=== PATIENT | male | born 1965 | race Caucasian/White ===

== ENCOUNTER 2017-05-09 12:00 | Inpatient (IN) ==
[2017-05-09] MEDS ORDERED: DIPH/TET/ACEL PERT BOOSTER VACCINE 0.5 ML VIAL IM ONE ×2 (12:45→12:59)
[2017-05-09] MEDS ORDERED: LACTATED RINGERS 500 ML IV STA (12:45)
[2017-05-09] MEDS ORDERED: HYDROmorphone 2 MG/1 ML VIAL IV STA (12:54)
[2017-05-09] MEDS ORDERED: ONDANSETRON 4 MG/2 ML VIAL IV STA (12:55)
[2017-05-09] MEDS ORDERED: ONDANSETRON 4 MG/2 ML VIAL ONE (12:58)
[2017-05-09] MEDS ORDERED: HYDROmorphone 2 MG/1 ML VIAL ONE ×2 (12:59→14:37)
[2017-05-09] MEDS ORDERED: ceFAZolin 1,000 MG VIAL ONE ×2 (13:15→17:02)
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
[2017-05-09 14:08] LABS: Basophils # 0.1 10*3/uL (0.0-0.2); Basophils % 0.5 % (0.0-0.8); Eosinophils # 0.1 10*3/uL (0.0-0.87); Eosinophils % 0.2 % (0.00-10.9); Hematocrit 43.9 VOL% (42.0-52.0); Hemoglobin 15.6 GM/DL (14.0-18.0); Immature Granulocytes % 0.7 %; Lymphocytes # 1.7 10*3/uL (1.4-4.0); Lymphocytes % 6.4 % (21.2-54.2); Mean Corpuscular HGB Conc 35.5 GM/DL (32-36); Mean Corpuscular Hemoglobin 32 PG (27-34); Mean Corpuscular Volume 90.9 FL (87-102); Mean Platelet Volume 10.2 FL (9.6-12.0); Monocytes # 2.5 10*3/uL (0.11-0.8); Monocytes % 9.3 % (1.7-12.7); Neutrophils # 22.5 10*3/uL (1.4-7.4); Neutrophils % 82.9 % (38.7-73.9); Platelet Count 310 T/CUMM (130-400); Red Blood Count 4.83 MC/CUMM (3.8-5.5); Red Cell Distribution Width 12.5 % (9.3-17.3); White Blood Count 27.1 T/CUMM (4-12)
[2017-05-09 14:18] LABS: INR 1.1; PT Patient Result 11.5 SECS; Partial Thromboplastin Time 24.3 SECS (0-40)
[2017-05-09] MEDS ORDERED: HYDROmorphone 2 MG/1 ML VIAL IV ONE (14:31)
[2017-05-09 14:37] LABS: Alanine Aminotransferase 47 U/L (16-61); Albumin 3.8 G/DL (3.4-5.0); Alkaline Phosphatase 58 U/L (45-117); Amylase 62 U/L (25-115); Aspartate Amino Transferase 33 U/L (0-37); Blood Urea Nitrogen 13 MG/DL (7-18); Calcium 8.9 MG/DL (8.5-10.1); Glucose 141 MG/DL (74-106); Osmolality,Calculated 280.4 MOS/KG (273-304); Potassium 4.2 MMOL/L (3.5-5.1); Sodium 140 MMOL/L (136-145); Total Protein 7.3 G/DL (6.4-8.3)
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
--- NOTE | 2017-05-09 14:43 | Orthopedic History & Physical ---
History of Present Illness Chief complaint: Open ankle fracture right History of present illness: Mr. Lisa is a 51 year old male See dictated report Home Medications Medication Instructions Recorded Confirmed Type No Known Home Medications [No 05/09/17 05/09/17 History Known Home Medications] Allergies Allergy/AdvReac Type Severity Reaction Status Date / Time No Known Allergies Allergy Verified 05/09/17 12:08 Medical,Surgical,& Family Hx - Social History Smoking Status: Current some day smoker Frequency of Alcohol Use: Occasionally Type of Drug Use: None Exam - Constitutional Vitals: Period Temp Pulse Resp BP Sys/Montejo Pulse Ox Last 24 Hr 98.3 F-98.3 F 70-77 18-20 124-184/73-111 95-99 Results - Labs CBC & BMP: 05/09/17 13:58 05/09/17 13:58
[2017-05-09 15:23] LABS: Band Neutrophils 3 % (0-10); Lymphocytes 10 % (20-55); Platelet Estimate Normal; Segmented Neutrophils 84 % (50-85); Total Cells Counted 100
--- NOTE | 2017-05-09 16:16 | EKG Report ---
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
[2017-05-09 16:22] LABS: Apearance,Urine CLEAR (Clear); Bilirubin,Urine Negative (Negative); Blood, Urine Moderate mg/dL (Negative); Glucose,Urine (UA) Negative (Negative); Ketones,Urine 5 mg/dL (Negative); Mucus,Urine Occasional /LPF (Occasional); Nitrite,Urine Negative (Negative); Protein,Urine Negative; RBC,Urine 3 /HPF (0-4); Squamous Epithelial Cell,Urine Occasional /HPF (0-10); Urine Color Yellow (Yellow); Urine Specific Gravity 1.043 (1.001-1.035); Urine Urobilinogen < 2.0 EU/DL (0.2-1.0); WBC,Urine 1 /HPF (0-6)
[2017-05-09] MEDS ORDERED: ROPIVACAINE 0.5% 30 ML VIAL ONE (16:28)
[2017-05-09 16:33] LABS: Barbiturates Screen,Urine Negative (Negative); Benzodiazepines Screen,Urine Negative (Negative); Cannabinoid Screen,Urine Negative (Negative); Opiate Screen,Urine Positive (Negative); Phencyclidine Screen,Urine Negative (Negative)
[2017-05-09] MEDS ORDERED: fentaNYL 100 MCG/2 ML VIAL ONE ×2 (17:37→18:33)
[2017-05-09] MEDS ORDERED: MIDAZOLAM 2 MG/2 ML VIAL ONE (17:37)
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
[2017-05-09] MEDS ORDERED: ONDANSETRON 4 MG/2 ML VIAL IV PRN ×2 (18:18→18:44)
[2017-05-09] MEDS ORDERED: BISACODYL 10 MG SUPP RECTAL PRN (18:18)
[2017-05-09] MEDS ORDERED: MAGNESIUM HYDROXIDE SUSP 30 ML UDCUP PO PRN (18:18)
[2017-05-09] MEDS ORDERED: NALOXONE 0.4 MG/ML VIAL IV PRN (18:18)
[2017-05-09] MEDS ORDERED: LACTULOSE 20 GM/30 ML UDCUP PO PRN (18:18)
[2017-05-09] MEDS ORDERED: HYDROmorphone 2 MG/1 ML VIAL IV PRN ×2 (18:18→18:44)
--- NOTE | 2017-05-09 18:32 | Anesthesia Post-Op ---
Anesthesia Post OP - Post Ansesthetic Evaluation Patient seen in post op: Yes Resp: within normal limits CV: within normal limits Mental: within normal limits Temp: within normal limits Gqyk-St-Wgdpdnnti: within normal limits Nausea and Vomiting: within normal limits Pain: within normal limits
[2017-05-09] MEDS ORDERED: SEVOFLURANE 1 UNIT/15 MINUTE INH ONE (18:35)
[2017-05-09] MEDS ORDERED: SODIUM CHLORIDE 0.9% 1,000 ML IV ONE (18:36)
[2017-05-09] MEDS ORDERED: LACTATED RINGERS 1,000 ML IV SCH (19:00)
[2017-05-09] MEDS: HYDROmorphone PCA 30 MG/30 ML SYRINGE IV SCH (19:14)
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
[2017-05-09] MEDS: LACTATED RINGERS 1,000 ML IV SCH (20:31)
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
[2017-05-10] MEDS: ceFAZolin 2,000 MG in PREMIX 1 EACH IV SCH ×3 (00:18→16:20)
[2017-05-10] MEDS: PROMETHAZINE 25 MG/1 ML VIAL IM PRN ×2 (11:42→17:39)
[2017-05-10] MEDS: HYDROmorphone 2 MG/1 ML VIAL IV PRN ×2 (11:42→16:20)
[2017-05-10] MEDS: LACTATED RINGERS 1,000 ML IV SCH ×2 (11:42)
--- NOTE | 2017-05-10 13:05 | Orthopedic Progress Note ---
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 Tolerating PT well. Discussed findings yesterday. Will plan on discharge tomorrow and follow-up 10 days Exam - Constitutional Vitals: Period Temp Pulse Resp BP Sys/Montejo Pulse Ox Last 24 Hr 96.3 F-98.7 F 64-90 16-22 113-168/52-96 94-100 Results - Labs CBC & BMP: 05/09/17 13:58 05/09/17 13:58
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
[2017-05-10] MEDS: HYDROmorphone PCA 30 MG/30 ML SYRINGE IV SCH (17:39)
[2017-05-11] MEDS: ceFAZolin 2,000 MG in PREMIX 1 EACH IV SCH ×2 (00:51→09:25)
[2017-05-11] MEDS: LACTATED RINGERS 1,000 ML IV SCH ×2 (02:56→23:34)
--- NOTE | 2017-05-11 14:49 | Orthopedic Progress Note ---
Assessment and Plan (1) Open dislocation of right ankle Status: Acute Assessment and plan: Patient does need some additional therapy to be safe ambulating. This is due to his injury morbid obesity. We will plan to have him work with therapy 1 more time in the morning and discharged home afterward. Will work to get home therapy for the patient to discharge. Current Visit: Yes Qualifiers: Encounter type: initial encounter Qualified Code(s): S93.04XA - Dislocation of right ankle joint, initial encounter; S91.001A - Unspecified open wound, right ankle, initial encounter Orthopedics - Subjective Interval history: Patient complains of mild to moderate pain in the right leg. He is able to ambulate approximately 10 feet with therapy today. On exam, splint is clean dry, he can wiggle his toes, he has brisk capillary refill. Exam - Constitutional Vitals: Period Temp Pulse Resp BP Sys/[place] Pulse Ox Last 24 Hr 96.5 F-99.8 F 90-97 18-20 125-161/68-80 95-98 Results - Labs CBC & BMP: 05/09/17 13:58 05/09/17 13:58 Specialty Discharge - Follow Up or Referrals Follow up with: Aaron García Jr., MD [Physician] - 05/21/17 9:00 am
--- NOTE | 2017-05-12 06:58 | Orthopedic Progress Note ---
Assessment and Plan (1) Open dislocation of right ankle Status: Acute Assessment and plan: d/c home today Current Visit: Yes Qualifiers: Encounter type: initial encounter Qualified Code(s): S93.04XA - Dislocation of right ankle joint, initial encounter; S91.001A - Unspecified open wound, right ankle, initial encounter Orthopedics - Subjective Interval history: No new c/o exam unchanged Exam - Constitutional Vitals: Period Temp Pulse Resp BP Sys/[place] Pulse Ox Last 24 Hr 96.5 F-100.0 F 96-110 18-20 129-164/65-88 94-99 Results - Labs CBC & BMP: 05/09/17 13:58 05/09/17 13:58 Specialty Discharge - Follow Up or Referrals Follow up with: Aaron García Jr., MD [Physician] - 05/21/17 9:00 am
[2017-05-12 12:05] VITALS: BP 141/72
[2019-05-09] MEDS ORDERED: LIDOCAINE 100 MG/5 ML SYRINGE ONE (16:30)
[2019-05-09] MEDS ORDERED: PHENYLEPHRINE 1 MG/10 ML SYRINGE IV ONE (16:30)
[2019-05-09] MEDS ORDERED: SUCCINYLCHOLINE 200 MG/10 ML VIAL ONE (16:30)
[2019-05-09] MEDS ORDERED: PROPOFOL 200 MG/20 ML VIAL IV ONE (16:30)
== END 2017-05-12 14:00 | disposition home or self-care (01) | DRG 493 ==
LOC: N.ED 12:00 → N.EDINP 15:47 → N.3E 19:45
PROVIDERS: ADMIT Orthopaedic Surgery; ATTEND Orthopaedic Surgery

== ENCOUNTER 2017-05-21 11:39 | Inpatient (IN) ==
[2017-05-21] MEDS ORDERED: SODIUM CHLORIDE 0.9% 1,000 ML IV STA ×2 (12:28→13:57)
--- NOTE | 2017-05-21 12:44 | Emergency Department Note ---
Mack Covarrubias Hilary, am scribing for, and in the presence of, Carmencita Mariscal DO 12: 30. IDavey Debra, DO, personally performed the services described in this documentation, ascribed by Palma Giron in my presence, and it is both accurate and complete 243 . Arrival - Arrival Chief Complaint: Shortness of Breath Stated Complaint: SOB. NECK AND BACK PAIN. SORE THROAT ED Nursing Triage Note: Pt c/o sore throat since last night, SOB, pale, broke out into a sweat, neck/upper/lower back pain. Pt was sent from [facility] after hours. Pt had ortho surgery on the right leg May [address] García this am for F/U. Mode of Arrival: Wheelchair Limitations: No Limitations Source: Patient, RN Notes Reviewed Time Seen by Provider: 05/21/17 12:10 - History of Present Illness HPI Narrative: Pt is a 51 y/o presenting to the ED with c/o SOB which onset yesterday. Pts brother gives hx and states that last night he was SOB, cold chills, diaphoresis , neck pain, back pain around his kidneys, pale and nausea. He states that the patient had ankle surgery on May 09 and he has been doing really well until yesterday. He states that he has been giving him 2 (325mg) aspirins and 1 [place] (7.5mg) x 3 a day, he drinks a lot of water but his urine is still dark. No other complaints or problems stated in the ED. Onset (ago): hour(s) Consistency: constant Severity: moderate Severity scale (1-10): 2 Allergies/Adverse Reactions: Allergies Allergy/AdvReac Type Severity Reaction Status Date / Time No Known Allergies Allergy Verified 05/09/17 12:08 Home Medications: Home Medications Medication Instructions Recorded Confirmed Type HYDROcodone/ACETAMIN 7.5-325 1 tablet PO Q4H PRN #30 tablet 05/10/17 05/21/17 Rx [[place] 7.5-325] Review of System - Review of System 12 point system: reviewed and no additional remarkable complaints except as stated - Review of System Constitutional: Present: chills, diaphoresis. Absent: fever Head/Ears/Nose/Throat: Present: sore throat Respiratory: Present: respiratory distress (SOB) Gastrointestinal: Present: nausea. Absent: abdominal pain Musculoskeletal: Present: back pain, lower back pain, neck pain, upper back pain Endocrine: Present: fatigue Medical,Surgical,& Family Hx - Medical History Neurology: No history of: Seizures - Surgical History Orthopedic Surgeries: Surgical HX of;: Orthopedic Surgery (right leg) - Social History Smoking Status: Current some day smoker Exam Vital Signs: Vital Signs Temperature 98.0 F 05/21/17 11:46 Pulse Rate 117 H 05/21/17 11:46 Respiratory Rate 24 05/21/17 11:46 Blood Pressure 94/66 05/21/17 11:46 O2 Sat by Pulse Oximetry 95 05/21/17 11:46 - General General appearance: alert, in no apparent distress, obese - Head Head exam: Present: atraumatic, normocephalic - Eye Eye exam: Present: normal appearance, PERRL, EOMI - ENT ENT exam: Present: mucous membranes dry, TM's normal bilaterally - Expanded ENT Exam Throat exam: Present: tonsillar erythema (sweling), other (cervical anterior lymphandenopathy). Absent: tonsillar exudate - Neck Neck exam: Present: full ROM, trachea midline. Absent: tenderness - Chest Chest inspection: Present: symmetric chest wall rise. Absent: tenderness - Respiratory Respiratory exam: Present: normal lung sounds bilaterally. Absent: respiratory distress - Cardiovascular Cardiovascular exam: Present: normal rhythm, tachycardia, normal heart sounds. Absent: murmur, rubs, gallop - Abdominal Exam Abdominal exam: Present: soft, distention (obese), normal bowel sounds. Absent : tenderness - Extremities Exam Extremities exam: Present: full ROM. Absent: tenderness - Back Exam Back exam: Present: full ROM. Absent: tenderness - Neurological Exam Neurological exam: Present: alert, oriented X3, CN II-XII intact. Absent: motor sensory deficit - Psychiatric Psychiatric exam: Present: normal affect, normal mood - Skin Skin exam: Present: warm, dry, intact, pallor. Absent: rash Results - Labs CBC & BMP: 05/21/17 12:58 05/21/17 12:58 Lab Results: I have reviewed the patients labs Labs: Laboratory Tests 05/21/17 12:58 WBC 40.8 H* RBC 4.21 Hgb 13.5 L Hct 38.6 L Plt Count 480 H Neut % (Auto) 91.2 H Lymph % (Auto) 2.4 L Neut # (Auto) 37.2 H Lymph # (Auto) 1.0 L [place] # (Auto) 2.0 H Laboratory Tests 05/21/17 12:58 INR 1.3 PT Patient/Control Mix 14.0 D Circ Anticoag PTT 28.3 Laboratory Tests 05/21/17 05/21/17 12:58 12:58 Sodium 131 L Potassium 4.6 Chloride 96 L Carbon Dioxide 21 Anion Gap 18.6 H BUN 30 H Creatinine 2.50 H Glucose 149 H Calculated Osmolality 270.7 L Total Bilirubin 1.50 H Total Protein 8.3 Albumin 3.2 L Globulin 5.1 H Albumin/Globulin Ratio 0.6 L Salicylates < 2.8 L Microbiology 05/21/17 12:28 Throat Group A Streptococcus Rapid Screen - Final Negative for Grp A Strep Ag - Diagnostic Findings Procedure: Chest x-ray: report reviewed by me (No acute abnormality), CT Abdomen and Pelvis: report reviewed by me (When compared to 05/09/2017, very slight increased prominence of bowel wall in the region of the jejunum suggesting mild gastroenteritis, a clinical diagnosis. Obesity, fatty infiltration of liver and subcentimetere retroperitoneal adn bilateral inguinal lymphnodes are stable. Negative appenddix.)
--- NOTE | 2017-05-21 12:53 | XRay Report ---
Portable chest. Indication: Shortness of breath. Comparison: May 09, 2017. The heart is enlarged. The pulmonary vasculature is normal. The lung webb are clear. No pneumothorax or pleural effusion. Impression: No acute abnormality. PROCEDURE INTERPRETED AT [facility] DEPARTMENT OF RADIOLOGY Final Report Signed by: Dr. Georgia Whitaker
[2017-05-21 13:04] LABS: Basophils # 0.1 10*3/uL (0.0-0.2); Basophils % 0.2 % (0.0-0.8); Hematocrit 38.6 VOL% (42.0-52.0); Hemoglobin 13.5 GM/DL (14.0-18.0); Immature Granulocytes % 1.3 %; Immature Granulocytes Absolute 0.55 #; Lymphocytes % 2.4 % (21.2-54.2); Mean Corpuscular Hemoglobin 32 PG (27-34); Mean Corpuscular Volume 91.7 FL (87-102); Mean Platelet Volume 9.6 FL (9.6-12.0); Monocytes % 4.9 % (1.7-12.7); Neutrophils # 37.2 10*3/uL (1.4-7.4); Neutrophils % 91.2 % (38.7-73.9); Platelet Count 480 T/CUMM (130-400); Red Blood Count 4.21 MC/CUMM (3.8-5.5); Red Cell Distribution Width 13.1 % (9.3-17.3)
[2017-05-21 13:08] LABS: White Blood Count 40.8 T/CUMM (4-12)
[2017-05-21 13:16] LABS: INR 1.3; Partial Thromboplastin Time 28.3 SECS (0-40)
[2017-05-21] MEDS ORDERED: VANCOMYCIN INJ 1,000 MG in SODIUM CHLORIDE 0.9% 250 ML IV STA (13:31)
[2017-05-21] MEDS ORDERED: VANCOMYCIN 1,000 MG VIAL ONE (13:35)
[2017-05-21 13:40] LABS: Albumin 3.2 G/DL (3.4-5.0); Bilirubin,Total 1.5 MG/DL (0.2-1.0); Calcium 8.9 MG/DL (8.5-10.1); Osmolality,Calculated 270.7 MOS/KG (273-304); Potassium 4.6 MMOL/L (3.5-5.1); Total Protein 8.3 G/DL (6.4-8.3)
--- NOTE | 2017-05-21 14:17 | CT Report ---
CT abdomen pelvis wo con Indication: Leukocytosis and flank pain. CT ABDOMEN AND PELVIS WITHOUT CONTRAST DLP: 2011 mGy*cm. One or more of the following dose reduction techniques was used: Automated exposure control, adjustment of the mA and/or kV according the patient size, or use of iterative reconstruction techniques. Comparison: 05/09/2017. Technique: Axial noncontrast CT images of the abdomen and pelvis were obtained. Abdomen: Morbid obesity, fatty infiltration of liver, cholecystectomy clips and normal heart size, mild bibasilar atelectasis, normal spleen, pancreas and adrenal glands are stable. No urolithiasis or obstructive uropathy on either side. Borderline enlarged retroperitoneal lymph nodes are present, largest 9 mm short axis. Similar to the previous exam. No aortic aneurysm. No bowel obstruction or focal bowel abnormality is seen. There is a very faint suggestion of thickening of the jejunum possibly indicating mild gastroenteritis, clinical diagnosis. Pelvis: Normal appendix without inflammation. Urinary bladder, prostate and rectosigmoid colon are unremarkable. Shotty bilateral groin lymph nodes are present, largest 9 mm short axis. These are unchanged as well. No new bone lesions. No free fluid, free air or lymphadenopathy. Impression: When compared to 05/09/2017, very slight increased prominence of bowel wall in the region of the jejunum suggesting mild gastroenteritis, a clinical diagnosis. Obesity, fatty infiltration of liver and subcentimeter retroperitoneal and bilateral inguinal lymph nodes are stable. Negative appendix. PROCEDURE INTERPRETED AT [facility] DEPARTMENT OF RADIOLOGY Final Report Signed by: Chase Delgado M.D.
[2017-05-21] MEDS ORDERED: EPINEPHrine 1 MG/10 ML SYRINGE ONE (14:57)
[2017-05-21] MEDS ORDERED: SODIUM BICARBONATE 50 MEQ/50 ML SYRINGE IV ONE (14:57)
[2017-05-21] MEDS ORDERED: DEXTROSE 50% 25 GM/50 ML SYRINGE IV ONE (14:57)
[2017-05-21] MEDS ORDERED: CALCIUM CHLORIDE 1,000 MG/10 ML SYRINGE IV ONE (14:57)
[2017-05-21] MEDS ORDERED: EPINEPHrine 1 MG/ML VIAL ONE (14:57)
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
[2017-05-21 15:56] LABS: Band Neutrophils 14 % (0-10); Lymphocytes 2 % (20-55); Metamyelocytes 1 %; Platelet Estimate Increased; Segmented Neutrophils 80 % (50-85); Total Cells Counted 100
[2017-05-21] MEDS ORDERED: SODIUM CHLORIDE 0.9% IV ONE (15:57)
[2017-05-21] MEDS ORDERED: AZTREONAM 2,000 MG in SODIUM CHLORIDE 0.9% 100 ML IV SCH (17:00)
[2017-05-21] MEDS: PIPERACILLIN/TAZOBACTAM 3,375 MG in SODIUM CHLORIDE 0.9% 100 ML IV SCH (17:33)
[2017-05-21] MEDS ORDERED: ACETAMINOPHEN 325 MG TABLET PO PRN (18:24)
[2017-05-21] MEDS ORDERED: ONDANSETRON 4 MG/2 ML VIAL IV PRN (18:24)
[2017-05-21] MEDS ORDERED: MORPHINE 2 MG/1 ML SYRINGE IV PRN (18:24)
[2017-05-21 18:28] LABS: ABG Base Excess -3.9 MMOL/L (-2.5-2.5); ABG HCO3 21.1 MMOL/L (20-26); ABG Oxygen Saturation 91.6 % (95-100); ABG PCO2 29.8 MM HG (35-48); ABG PH 7.423 (7.35-7.45); ABG PO2 64.6 MM HG (80-95); ABG TCO2 17.2 MMOL/L (23-27)
[2017-05-21] MEDS ORDERED: MORPHINE 2 MG/1 ML SYRINGE ONE (18:32)
[2017-05-21 19:35] LABS: Apearance,Urine Slightly Hazy (Clear); Bacteria,Urine Moderate /HPF (Few); Bilirubin,Urine Negative (Negative); Blood, Urine Small mg/dL (Negative); Glucose,Urine (UA) Negative (Negative); Hyaline Casts,Urine 7 /LPF (0-3); Ketones,Urine Negative (Negative); Mucus,Urine Occasional /LPF (Occasional); Nitrite,Urine Negative (Negative); Protein,Urine 30 MG/DL; RBC,Urine 2 /HPF (0-4); Urine Color Amber (Yellow); WBC,Urine 8 /HPF (0-6)
[2017-05-21] MEDS: ALBUTEROL/IPRATROPIUM 3 ML NEB RESP TX SCH (20:19)
[2017-05-21 21:04] LABS: Hepatitis A Ab IgM Quant 0.07 Index; Hepatitis A Ab IgM Result Negative (Negative); Hepatitis B Core IgM Quant 0.15 Index; Hepatitis B Core IgM Result Negative (Negative); Hepatitis B Surface Ag Quant < 0.10 Index; Hepatitis B Surface Ag Result Negative (Negative); Hepatitis C Virus Ab Quant 0.15 Index; Hepatitis C Virus Ab Result Negative (Negative)
[2017-05-21] MEDS ORDERED: PHENYLEPHRINE DRIP 40 MG/250 ML PREMIX IV ONE (22:10)
[2017-05-21] MEDS ORDERED: PROPOFOL 1,000 MG/100 ML BOTTLE IV ONE (22:10)
[2017-05-21] MEDS ORDERED: ETOMIDATE 20 MG/10 ML VIAL IV ONE ×2 (22:33→22:37)
[2017-05-21] MEDS ORDERED: SUCCINYLCHOLINE 200 MG/10 ML VIAL ONE ×2 (22:41→22:52)
[2017-05-21] MEDS: PHENYLEPHRINE DRIP 40 MG/250 ML PREMIX IV SCH (23:00)
[2017-05-21 23:35] LABS: ABG Base Excess -13.4 MMOL/L (-2.5-2.5); ABG HCO3 21.7 MMOL/L (20-26); ABG Oxygen Saturation 70.8 % (95-100); ABG PO2 62.7 MM HG (80-95); ABG TCO2 25.6 MMOL/L (23-27); Allen Test Positive
[2017-05-21 23:38] LABS: ABG PCO2 125.5 MM HG (35-48); ABG PH 6.856 (7.35-7.45)
--- NOTE | 2017-05-21 23:54 | Operative Note ---
Date of procedure: 05/21/17 Pre-op diagnosis: Respiratory arrest Post-op diagnosis: same Procedure: Preoperative diagnosis Respiratory arrest Postoperative diagnosis Same Procedure performed Open cricothyroidotomy Findings It is very difficult to tell where the cricothyroid membrane was morbidly obese patient with a short neck. I entered what I thought was the cricothyroid membrane and a 7-1/2 endotracheal tube was placed. It was secured at 15 cm and a chest x-ray was ordered. Complications None apparent Specimen None Indications Respiratory arrest Description of procedure The patient was too unstable for prep or timeout. An 11 blade scalpel was used to make a vertical skin incision over the trachea and the cricothyroid membrane was palpated. This was very difficult to identify by palpation given the patient's morbid obesity and very large thick neck with short neck. The cricothyroid membrane was eventually found at least I think that is what I was feeling and it was entered with an 11 blade scalpel and a trachea presetter operator was used. A 7-1/2 endotracheal tube was then placed at 15 cm and the cuff was inflated. The tube was then used for ventilation and had good breath sounds. A chest x-ray was ordered and it was secured with the suture. Postoperative plan Exchange for trans-oral airway tomorrow Implants: 7.5 endotracheal tube through cricothyroid membrane Surgeon / Physician: Phillip Bui Specimens: none sent Condition: critical Disposition: no change Results - Labs CBC & BMP: 05/21/17 12:58 05/21/17 12:58 Discharge Plan - Discharge Medications No Action HYDROcodone/ACETAMIN 7.5-325 [[place] 7.5-325] 1 tablet PO Q4H PRN #30 tablet PRN Reason: Pain Moderate (4-7) - Follow Up or Referral - Forms/Instructions
[2017-05-22] MEDS ORDERED: HEPARIN/NACL 0.9% 2 UNITS/ML 500 ML IV ONE (00:47)
[2017-05-22] MEDS: PROPOFOL 1,000 MG/100 ML BOTTLE IV SCH (01:00)
[2017-05-22] MEDS ORDERED: CISATRACURIUM 10 MG/5 ML VIAL IV ONE (01:03)
[2017-05-22 01:07] LABS: ABG Base Excess -12.3 MMOL/L (-2.5-2.5); ABG Oxygen Saturation 96.8 % (95-100); ABG PCO2 63.1 MM HG (35-48); ABG TCO2 17.8 MMOL/L (23-27)
[2017-05-22 01:09] LABS: ABG PH 7.086 (7.35-7.45)
[2017-05-22] MEDS: ALBUTEROL/IPRATROPIUM 3 ML NEB RESP TX SCH ×7 (01:10→23:48)
[2017-05-22 01:28] LABS: Basophils # 0.1 10*3/uL (0.0-0.2); Basophils % 0.2 % (0.0-0.8); Eosinophils # 0.1 10*3/uL (0.0-0.87); Eosinophils % 0.1 % (0.00-10.9); Hematocrit 33.7 VOL% (42.0-52.0); Hemoglobin 10.7 GM/DL (14.0-18.0); Immature Granulocytes % 3.5 %; Immature Granulocytes Absolute 1.32 #; Lymphocytes # 3.7 10*3/uL (1.4-4.0); Lymphocytes % 9.8 % (21.2-54.2); Mean Corpuscular HGB Conc 31.8 GM/DL (32-36); Mean Corpuscular Hemoglobin 32 PG (27-34); Mean Corpuscular Volume 101.2 FL (87-102); Mean Platelet Volume 10.5 FL (9.6-12.0); Monocytes # 1.6 10*3/uL (0.11-0.8); Monocytes % 4.4 % (1.7-12.7); NRBC # 0.25 10*3/uL; Neutrophils # 30.6 10*3/uL (1.4-7.4); Platelet Count 412 T/CUMM (130-400); Red Blood Count 3.33 MC/CUMM (3.8-5.5); Red Cell Distribution Width 13.3 % (9.3-17.3); White Blood Count 37.4 T/CUMM (4-12)
--- NOTE | 2017-05-22 01:28 | Event Note ---
Intubation note: Indication: Respiratory distress Description: The patient required sedation with propofol, etomidate, and succinylcholine. The video-laryngoscope was used to visualize the vocal cords. The vocal cords were poorly visualized due to copious secretions. Upon first attempt, the esophagus was intubated. Second and third attempt at intubation were unsuccessful. Anesthesia and ER physician were called immediately. Anesthesia was unable to intubate the patient, thus an emergent cricothyroidotomy was performed at the bedside successfully. Unfortunately just prior to this the patient lost his pulse. CODE BLUE note Approximately 2300 while attempting to obtain airway patient lost his pulse and required ACLS for approximately 18 minutes before ROSC. He was then cardioverted into sinus rhythm from V. tach. Targeted temperature management protocol was then initiated. Approximately 2:52 AM patient lost his pulse and required ACLS until ROSC at approximately 2:57 AM Approximately 3:48 AM patient lost his pulse and required ACLS until ROSC at approximately 3:56 AM Patient's brother was kept updated throughout these events, including patient's severity of illness. PROCEDURE NOTE: Right femoral central line placement. Indication: CV access The right groin was prepped and draped per sterile technique and anesthetized with lidocaine. The femoral artery pulse was palpated, and the finder needle was advanced into the femoral vein with dark nonpulsatile blood return. The guidewire was advanced through the finder needle into the femoral vein. A small skin incision was made, the needle was removed, and the dilator was applied over the wire. The dilator was removed and the arrow triple-lumen catheter was advanced easily over the wire. Each port aspirated and flushed with normal saline. The central line was sutured into place. Complications: none EBL: minimal PROCEDURE NOTE: Right femoral arterial line placement Indication: Intra-arterial BP monitoring s/p cardiac arrest The right groin was prepped and draped per sterile technique and anesthetized with lidocaine. The right femoral artery was palpated easily and the finder needle was advanced into the artery with bright red pulsatile blood return. The guidewire was advanced through the finder needle into the femoral artery. A small skin incision was made, the needle was removed, and the arterial catheter was advanced over the wire into place, the wire was removed, and the line was sutured into place. A-line was connected to a transducer with good waveform. EBL: minimal Complications: none Total critical care time spent with this patient, including [id number] time with patient's brother, CODE BLUE 3, and procedures was approximately 142 minutes
[2017-05-22] MEDS ORDERED: FAMOTIDINE 20 MG/2 ML VIAL IV SCH (01:30)
[2017-05-22] MEDS ORDERED: MAGNESIUM SULF RIDER 4 GM in PREMIX 1 EACH IV PRN (01:30)
[2017-05-22] MEDS ORDERED: MAGNESIUM SULF RIDER 2 GM in PREMIX 1 EACH IV PRN (01:30)
[2017-05-22] MEDS ORDERED: POTASSIUM CHLORIDE RIDER 20 MEQ in PREMIX 1 EACH IV PRN (01:30)
[2017-05-22] MEDS ORDERED: POTASSIUM CHLORIDE RIDER 10 MEQ in PREMIX 1 EACH IV PRN (01:30)
[2017-05-22 01:34] LABS: INR 1.6; PT Patient Result 17.9 SECS; Partial Thromboplastin Time 32.9 SECS (0-40)
[2017-05-22 01:49] LABS: Alanine Aminotransferase 30 U/L (16-61); Alkaline Phosphatase 67 U/L (45-117); Aspartate Amino Transferase 32 U/L (0-37); Calcium 7.7 MG/DL (8.5-10.1); Phosphorous 10.3 MG/DL (2.5-4.9); Total Protein 5.2 G/DL (6.4-8.3)
[2017-05-22 01:50] LABS: Amylase 29 U/L (25-115); Blood Urea Nitrogen 31 MG/DL (7-18); Glucose 267 MG/DL (74-106); Magnesium 2.3 MG/DL (1.8-2.4); Osmolality,Calculated 296.3 MOS/KG (273-304); Sodium 141 MMOL/L (136-145)
[2017-05-22 02:04] LABS: Band Neutrophils 15 % (0-10); Lymphocytes 9 % (20-55); Segmented Neutrophils 72 % (50-85); Total Cells Counted 100
[2017-05-22 02:05] LABS: Platelet Estimate Adequate
[2017-05-22 02:06] LABS: Burr Cells Slight; Polychromasia Slight
[2017-05-22] MEDS: CISATRACURIUM 200 MG in SODIUM CHLORIDE 0.9% 100 ML IV SCH ×6 (02:20→22:53)
[2017-05-22] MEDS: fentaNYL INJ 1,250 MCG in SODIUM CHLORIDE 0.9% 225 ML IV SCH ×4 (02:21→22:55)
[2017-05-22] MEDS: PIPERACILLIN/TAZOBACTAM 3,375 MG in SODIUM CHLORIDE 0.9% 100 ML IV SCH ×3 (02:32→16:25)
[2017-05-22] MEDS ORDERED: SODIUM BICARBONATE 50 MEQ/50 ML SYRINGE IV ONE (02:50)
[2017-05-22] MEDS: SODIUM BICARB INJ 150 MEQ in DEXTROSE 5% 850 ML IV SCH ×2 (03:35→14:52)
[2017-05-22] MEDS ORDERED: SODIUM CHLORIDE 0.9% 1,000 ML IV ONE (03:40)
[2017-05-22] MEDS ORDERED: NOREPINEPHRINE 4 MG/4 ML VIAL IV ONE ×2 (03:47→07:28)
[2017-05-22] MEDS ORDERED: PHENYLEPHRINE DRIP 40 MG/250 ML PREMIX IV ONE (04:57)
[2017-05-22] MEDS: NOREPINEPHRINE 8 MG in SODIUM CHLORIDE 0.9% 242 ML IV SCH ×2 (05:13→08:30)
[2017-05-22] MEDS: PHENYLEPHRINE DRIP 40 MG/250 ML PREMIX IV SCH ×2 (05:14→09:00)
[2017-05-22 06:21] LABS: ABG Base Excess -13.4 MMOL/L (-2.5-2.5); ABG HCO3 14.2 MMOL/L (20-26); ABG Oxygen Saturation 96.4 % (95-100); ABG TCO2 18.6 MMOL/L (23-27)
[2017-05-22 06:23] LABS: ABG PH 7.029 (7.35-7.45)
[2017-05-22 06:24] LABS: ABG PCO2 73.6 MM HG (35-48)
[2017-05-22 06:39] LABS: Basophils # 0.1 10*3/uL (0.0-0.2); Basophils % 0.3 % (0.0-0.8); Eosinophils # 0.1 10*3/uL (0.0-0.87); Eosinophils % 0.2 % (0.00-10.9); Hematocrit 37.6 VOL% (42.0-52.0); Hemoglobin 12.1 GM/DL (14.0-18.0); Immature Granulocytes Absolute 1.65 #; Lymphocytes # 4.6 10*3/uL (1.4-4.0); Lymphocytes % 11.1 % (21.2-54.2); Mean Corpuscular HGB Conc 32.2 GM/DL (32-36); Mean Corpuscular Hemoglobin 32 PG (27-34); Mean Corpuscular Volume 99.7 FL (87-102); Mean Platelet Volume 10.3 FL (9.6-12.0); Monocytes # 1.6 10*3/uL (0.11-0.8); Monocytes % 3.9 % (1.7-12.7); NRBC # 0.71 10*3/uL; Neutrophils # 33.6 10*3/uL (1.4-7.4); Neutrophils % 80.5 % (38.7-73.9); Platelet Count 507 T/CUMM (130-400); Red Blood Count 3.77 MC/CUMM (3.8-5.5); Red Cell Distribution Width 13.5 % (9.3-17.3)
[2017-05-22 06:50] LABS: INR 1.9
[2017-05-22 06:52] LABS: PT Patient Result 20.8 SECS
--- NOTE | 2017-05-22 06:55 | Pulmonology Consult Note ---
Assessment and Plan (1) Sepsis Status: Acute Assessment and plan: Patient had fever marked elevated white count tachycardia. Presently on vancomycin and Zosyn. Infectious disease to see. Apparently he has had purulent drainage from his right leg. Current Visit: Yes (2) Acute respiratory failure Status: Acute Assessment and plan: His chest x-ray looks pretty good. Remains hypoxemic despite FiO2 of 100%. Marked metabolic acidosis. Presently has orotracheal tube via his cricoid. Will get ENT to see if we can get a more permanent airway. Current Visit: Yes (3) Septic shock Status: Acute Assessment and plan: Continuing broad-spectrum antibiotics, pressors, bicarb. He is getting a good bit of IV fluid. Renal function had worsened. Current Visit: Yes (4) Morbid obesity Status: Acute Assessment and plan: This may complicate things with weaning. Current Visit: No (5) Open fracture of medial malleolus of right ankle Status: Acute Assessment and plan: Orthopedics to follow. Current Visit: No History of Present Illness Chief complaint: Post cardiac arrest History of present illness: Mr. Lisa is a 51 year old male who had an ankle fracture about a week and a half ago. He apparently had fever shortness of breath going on for a day or 2. He was seen at the orthopedic office and sent to the emergency room. He subsequently developed respiratory distress. Reportedly had a difficult intubation requiring emergent tracheostomy. Had cardiac arrest during the procedure. At present he is unresponsive on the ventilator and has a severe metabolic acidosis. I was asked to see him to manage the ventilator. Reportedly he has had purulent drainage from his ankle. Home Medications Medication Instructions Recorded Confirmed Type HYDROcodone/ACETAMIN 7.5-325 1 tablet PO Q4H PRN #30 tablet 05/10/17 05/21/17 Rx [[place] 7.5-325] Allergies Allergy/AdvReac Type Severity Reaction Status Date / Time No Known Allergies Allergy Verified 05/09/17 12:08 ROS unobtainable: due to endotracheal tube Exam (Pulmonay) H&P - Constitutional Vitals: Period Temp Pulse Resp BP Sys/[place] Pulse Ox Last 24 Hr 96.9 F-103.5 F 72-140 14-42 33-196/19-129 75-98 Exam: Patient is unresponsive. Tachycardic his blood pressures being maintained with pressors. Pupils are small and sluggish. He has an endotracheal tube via his upper trachea. Appears to be an area of cricoid. Chest shows equal breath sounds. I do not hear any rales. Heart rapid rate regular rhythm no murmurs. Abdomen obese unable to palpate abdominal organs. Bowel sounds decreased but present. Extremities no clubbing cyanosis edema. He has a splint on his right lower leg. Medical,Surgical,& Family Hx - Medical History Neurology: No history of: Seizures - Surgical History Orthopedic Surgeries: Surgical HX of;: Orthopedic Surgery (right leg) - Social History Smoking Status: Current some day smoker Frequency of Alcohol Use: Occasionally Type of Drug Use: None Results - Labs CBC & BMP: 05/22/17 00:12 05/22/17 00:12 Lab Results: I have reviewed the past 24 hour labs - Diagnostic Findings Procedure: Chest x-ray: image reviewed by me (There may be minimal infiltrate on the left side. Lungs relatively clear. This was from the 11:54 PM x-ray last night. Today's x-ray is pending.)
[2017-05-22 07:25] LABS: Lactic Acid 9.1 MMOL/L (0.4-2.0)
--- NOTE | 2017-05-22 07:27 | XRay Report ---
Exam: XR chest 1V portable Indication: Intubated, ventilator Comparison study: 05/21/2017 radiograph Findings: Tracheostomy tube and esophagogastric tube are in similar positions. Low lung volumes are noted. There is no pneumothorax. Cardiac silhouette and mediastinal contours appear similar to prior. Impression: No significant change. Stable position of endotracheal and esophagogastric tubes. PROCEDURE INTERPRETED AT [facility] DEPARTMENT OF RADIOLOGY Final Report Signed by: Amado Mota
[2017-05-22 07:28] LABS: White Blood Count 41.7 T/CUMM (4-12)
--- NOTE | 2017-05-22 07:32 | XRay Report ---
Exam: XR chest 1V portable Indication: Intubated, ventilator Comparison study: 05/22/2017 at 2:47 AM Findings: Endotracheal tube terminates approximately 3 cm from the rafa, unchanged. Esophagogastric tube is in similar position. Cardiac silhouette and mediastinal contours appear essentially unchanged. Low lung volumes are noted. Minimal perihilar interstitial opacities are noted. There is no pneumothorax Impression: Stable position of endotracheal and esophagogastric tubes. Similar mild cardiomegaly. Otherwise, no significant change. PROCEDURE INTERPRETED AT [facility] DEPARTMENT OF RADIOLOGY Final Report Signed by: Amado Mota
[2017-05-22 07:35] LABS: Albumin 2.1 G/DL (3.4-5.0); Bilirubin,Total 1.6 MG/DL (0.2-1.0); CKMB % 1.7 %; Calcium 7.5 MG/DL (8.5-10.1); Potassium 4.4 MMOL/L (3.5-5.1)
[2017-05-22 07:38] LABS: Troponin I Only 7.86 NG/ML (0.00-0.045)
--- NOTE | 2017-05-22 07:58 | XRay Report ---
Exam: XR chest 1V portable Date: 05/21/2017 11:50 PM Indication: Cricothyroidotomy Comparison: 05/21/2017 Technical:AP portable Findings: Nasogastric tube traverses the esophagus and the distal tip endotracheal tube is present at the level of the aortic knob. External cardiac leads are present. No pneumothorax. Mild prominence the cardiac silhouette. Patchy interstitial infiltrates in the perihilar regions. Impression: 1. Endotracheal tube at level aortic knob 2. Nasogastric tube at the GE junction. Advancement the tube is recommended. Critical test report called at time of dictation to this ICU nurse. PROCEDURE INTERPRETED AT [facility] DEPARTMENT OF RADIOLOGY Final Report Signed by: Dr. Arnulfo Arnold
[2017-05-22] MEDS: LORazepam 2 MG/1 ML VIAL IV PRN ×2 (08:00→21:54)
--- NOTE | 2017-05-22 08:01 | EKG Report ---
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
[2017-05-22 08:04] LABS: Band Neutrophils 31 % (0-10); Hypochromasia 1+; Lymphocytes 10 % (20-55); Polychromasia Slight; Promyelocytes 1 %; Segmented Neutrophils 56 % (50-85); Total Cells Counted 100
[2017-05-22 08:05] LABS: Platelet Estimate Increased; Target Cells Slight
[2017-05-22 08:19] LABS: ABG Base Excess -12.8 MMOL/L (-2.5-2.5); ABG HCO3 14.5 MMOL/L (20-26); ABG Oxygen Saturation 92.2 % (95-100); ABG PO2 86.4 MM HG (80-95); ABG TCO2 18.9 MMOL/L (23-27)
[2017-05-22 08:22] LABS: ABG PCO2 72.9 MM HG (35-48); ABG PH 7.042 (7.35-7.45)
[2017-05-22] MEDS: LORazepam INJ 40 MG in DEXTROSE 5% 30 ML IV SCH ×4 (08:25→22:55)
[2017-05-22 08:42] LABS: Apearance,Urine CLOUDY (Clear); Bacteria,Urine Occasional /HPF (Few); Bilirubin,Urine Negative (Negative); Blood, Urine Moderate mg/dL (Negative); Glucose,Urine (UA) 150 mg/dL (Negative); Ketones,Urine Negative (Negative); Mucus,Urine Occasional /LPF (Occasional); Nitrite,Urine Negative (Negative); Protein,Urine >=500 MG/DL; RBC,Urine 113 /HPF (0-4); Sperm,Urine Occasional /HPF (Negative); Urine Specific Gravity 1.013 (1.001-1.035); Urine Urobilinogen < 2.0 EU/DL (0.2-1.0); WBC,Urine 97 /HPF (0-6)
[2017-05-22 08:44] LABS: Urine Color Yellow (Yellow)
--- NOTE | 2017-05-22 09:42 | Orthopedic Progress Note ---
Orthopedics - Subjective Interval history: Events of yesterday and last noted upon admission including respiratory arrest now intubated. He was seen in clinic yesterday for a follow-up from his ORIF medial tibial plafond fracture he did not feel well at the time was pale and diaphoretic his splint was changed all wounds were inspected his surgical incision was clean and dry elysia were removed and wound Steri-Stripped the wound over the medial heel which was draining some mild serous fluid but no purulent material he also had developed a abrasion/fracture blistered area over the posterior medial calf that was superficial and not also felt to be infected. Exam today confirms the wound findings from yesterday still some mild serous drainage from the heel wound I cannot palpate or express any discharge from that wound. The fracture blistered area again is superficial and fairly dry his surgical wound also remains dry with no erythema fluctuance or expression of any seropurulent material. We will continue with the redressing of his lower leg and the splinting. I do not believe his ankle wound is infected nor source for his sepsis from clinical evaluation. Situation is quite critical at this time. Continue to follow with you. No family is present to discuss this a.m. Exam - Constitutional Vitals: Period Temp Pulse Resp BP Sys/[place] Pulse Ox Last 24 Hr 96.9 F-103.5 F 72-140 14-42 33-196/19-129 75-98 Results - Labs CBC & BMP: 05/22/17 06:01 05/22/17 06:02
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
--- NOTE | 2017-05-22 10:45 | Hospitalist Progress Note ---
Assessment and Plan (1) Anoxic encephalopathy syndrome Status: Acute Assessment and plan: The patient has elevated cardiac enzymes and liver function testing and creatinine elevation consistent with anoxia. The patient continues on cooling protocol. Antibiotics are as designed by Dr. Sanford. Fracture care per Dr. García. Ventilator management per Dr. Smith. Current Visit: Yes (2) Acute respiratory failure Status: Acute Current Visit: Yes Qualifiers: Respiratory failure complication: hypoxia and hypercapnia Qualified Code(s) : J96.01 - Acute respiratory failure with hypoxia; J96.02 - Acute respiratory failure with hypercapnia (3) Septic shock Status: Acute Current Visit: Yes Hospitalist: Subjective Interval history: The patient was admitted the hospital with sepsis syndrome. The patient had respiratory failure and resulting respiratory arrest. The patient has evidence of anoxic injury. The patient is unresponsive and receiving hypothermic care at present. I coordinated care with Dr. García and with Dr. Sanford this morning. Exam - Constitutional Vitals: Period Temp Pulse Resp BP Sys/[place] Pulse Ox Last 24 Hr 96.9 F-103.5 F 72-140 14-42 33-196/19-129 75-99 - Respiratory Respiratory exam: Present: clear to auscultation bilaterally - Cardiovascular Cardiovascular exam: Present: regular rate and rhythm - GI/Abdominal GI/Abdominal exam: Present: hypoactive bowel sounds Results - Labs CBC & BMP: 05/22/17 06:01 05/22/17 06:02 Lab Results: I have reviewed the past 24 hour labs
[2017-05-22] MEDS: NOREPINEPHRINE 16 MG in SODIUM CHLORIDE 0.9% 234 ML IV SCH ×2 (10:58→18:04)
[2017-05-22] MEDS: PHENYLEPHRINE INJ 160 MG in SODIUM CHLORIDE 0.9% 234 ML IV SCH ×2 (11:02→22:54)
[2017-05-22 11:21] LABS: HIV Antigen/Antibody Result Nonreactive (Nonreactive)
[2017-05-22] MEDS ORDERED: MINERAL OIL/PETROLATUM OPH OINT 3.5 GM TUBE BOTH EYES PRN (11:24)
[2017-05-22 12:17] LABS: Basophils # 0.1 10*3/uL (0.0-0.2); Basophils % 0.3 % (0.0-0.8); Eosinophils % 0.1 % (0.00-10.9); Hemoglobin 12.5 GM/DL (14.0-18.0); Immature Granulocytes % 2.2 %; Immature Granulocytes Absolute 0.74 #; Lymphocytes # 3.7 10*3/uL (1.4-4.0); Lymphocytes % 11.1 % (21.2-54.2); Mean Corpuscular HGB Conc 32.1 GM/DL (32-36); Mean Corpuscular Hemoglobin 32 PG (27-34); Mean Corpuscular Volume 99.2 FL (87-102); Monocytes # 1.1 10*3/uL (0.11-0.8); Monocytes % 3.3 % (1.7-12.7); NRBC # 0.74 10*3/uL; Neutrophils # 27.7 10*3/uL (1.4-7.4); Platelet Count 438 T/CUMM (130-400); Red Blood Count 3.93 MC/CUMM (3.8-5.5); Red Cell Distribution Width 13.4 % (9.3-17.3); White Blood Count 33.3 T/CUMM (4-12)
[2017-05-22 12:27] LABS: INR 2.3; Partial Thromboplastin Time 35.9 SECS (0-40)
[2017-05-22 12:28] LABS: PT Patient Result 25.5 SECS
[2017-05-22 12:34] LABS: Calcium 6.7 MG/DL (8.5-10.1); Magnesium 2.4 MG/DL (1.8-2.4); Osmolality,Calculated 296.1 MOS/KG (273-304); Potassium 4.5 MMOL/L (3.5-5.1)
[2017-05-22 12:34] LABS: Band Neutrophils 10 % (0-10); Giant Platelets Few; Lymphocytes 7 % (20-55); Platelet Estimate Adequate; Segmented Neutrophils 80 % (50-85); Total Cells Counted 100
[2017-05-22 12:35] LABS: Anisocytosis 1+; Macrocytosis 1+
[2017-05-22 12:38] LABS: Lactic Acid 8.5 MMOL/L (0.4-2.0)
[2017-05-22 13:02] LABS: Troponin I Only 9.44 NG/ML (0.00-0.045)
[2017-05-22] MEDS: INSULIN REGULAR 100 UNIT/ML IV SCH ×3 (13:06→20:18)
--- NOTE | 2017-05-22 13:52 | Consultation ---
Assessment and Plan - Time spent with patient Time spent with patient: Less than 30 minutes (1) Ventilator dependent Status: Acute Assessment and plan: Emergent cricothyroidotomy performed last night. He is currently ventilating well with the cricothyroidotomy with a ET tube #[address] and patent. I agree he needs to have this converted to a tracheostomy in the near future. I would normally recommend this within 24 hours but because of his overall status currently and the concern for anoxic brain injury and requiring of 3 pressors I feel this takes precedence over concern for his long-term laryngeal health by keeping a cricothyroidotomy that he is tolerating well in place. Will continue to watch him I will plan on changing him to a more formal tracheostomy on Sunday after he is hopefully improved and his cooling is complete and hopefully he is off some or all of his pressors. I discussed this with pulmonology and general surgery and the feel that this is a reasonable plan considering the patient's overall medical condition. Thank you very much for this consultation I will intermittently follow this patient and plan on proceeding with tracheostomy on Sunday unless his condition worsens or changes. Current Visit: Yes (2) Tracheostomy status Status: Acute Current Visit: Yes (3) Acute respiratory failure Status: Acute Current Visit: Yes Qualifiers: Respiratory failure complication: hypoxia and hypercapnia Qualified Code(s) : J96.01 - Acute respiratory failure with hypoxia; J96.02 - Acute respiratory failure with hypercapnia (4) Anoxic encephalopathy syndrome Status: Acute Current Visit: Yes History of Present Illness - Data of Consult Patient: new to practice Consult date: 05/22/17 - Consult Narrative Reason for consult: Cricothyroidotomy emergent History of present illness: Mr. Lisa is a 51 year old male with multiple medical comorbidities who ultimately coded and was unable to be mask ventilated and required intubation which failed and general surgery was emergently consulted to perform a emergent cricothyroidotomy that a ET tube was placed in. ENT is consulted for conversion to tracheostomy. His condition is very guarded currently and he is requiring cooling to help with possible anoxic brain injury and is on 3 pressors and currently they are trying to get 72 hours consecutive of cooling for concern for possible anoxic brain injury. Is currently on the ventilator tolerating this well. CC: Yuri Hale MD - Home Medications and Allergies Home Medications: Home Medications Medication Instructions Recorded Confirmed Type HYDROcodone/ACETAMIN 7.5-325 1 tablet PO Q4H PRN #30 tablet 05/10/17 05/21/17 Rx [[place] 7.5-325] Allergies/Adverse Reactions: Allergies Allergy/AdvReac Type Severity Reaction Status Date / Time No Known Allergies Allergy Verified 05/09/17 12:08 ROS unobtainable: due to endotracheal tube Medical,Surgical,& Family Hx - Medical History Neurology: No history of: Seizures - Surgical History Orthopedic Surgeries: Surgical HX of;: Orthopedic Surgery (right leg) - Social History Smoking Status: Current some day smoker Frequency of Alcohol Use: Occasionally Type of Drug Use: None Exam - Constitutional Vitals: Period Temp Pulse Resp BP Sys/[place] Pulse Ox Last 24 Hr 91.0 F-103.5 F 72-140 14-42 33-196/19-129 75-99 General appearance: over weight, other (On the ventilator sedated) - Head Head exam: Present: normal inspection, normocephalic - ENT ENT exam: Present: normal exam (Grossly normal exam), normal external ear exam, normal oropharynx - Neck Neck exam: Present: other (The midline cricothyroidotomy with a #[address] and patent and the patient is ventilating well.) - Respiratory Respiratory exam: Present: other (Currently on the ventilator and sedated) - Cardiovascular Cardiovascular exam: Present: other (Currently on 3 pressors to maintain blood pressure is just barely over 100 systolic) - GI/Abdominal GI/Abdominal exam: Present: soft - Neurological Exam Neurological exam: Present: other (Sedated concern for anoxic brain injury currently being cooled) - Psychiatric Psychiatric exam: Present: other (Unable to assess because the patient is sedated on the ventilator) - Skin Skin exam: Present: other (Patient's skin overall is cool because of the cooling being performed for concern of anoxic brain injury) Results - Labs CBC & BMP: 05/22/17 12:14 05/22/17 11:45 Lab Results: I have reviewed the past 24 hour labs Quality Measures - VTE Contraindication to Pharmacological VTE Prophylaxis: High Risk of Bleeding
--- NOTE | 2017-05-22 15:02 | Neurology Consult Note ---
History of Present Illness History of present illness: Pt is unable to provide any history. History basically obtained from the chart. Mr. Lisa is a 51 year old white gentleman who had an ankle fracture about a week and a half ago. He apparently presented to ER with fever and shortness of breath for a day or 2. He was seen at the orthopedic office and sent to the emergency room. He subsequently developed respiratory distress. Reportedly had a difficult intubation requiring emergent tracheostomy. Had cardiac arrest during the procedure. At present he is unresponsive on the ventilator and has a severe metabolic acidosis. he is also getting Artic sun hypothermia protocol. he is completely unresponsive and requiring multiple presser agents. Home Medications Medication Instructions Recorded Confirmed Type HYDROcodone/ACETAMIN 7.5-325 1 tablet PO Q4H PRN #30 tablet 05/10/17 05/21/17 Rx [[place] 7.5-325] Allergies Allergy/AdvReac Type Severity Reaction Status Date / Time No Known Allergies Allergy Verified 05/09/17 12:08 ROS unobtainable: due to endotracheal tube Medical,Surgical,& Family Hx - Medical History Neurology: No history of: Seizures - Surgical History Orthopedic Surgeries: Surgical HX of;: Orthopedic Surgery (right leg) - Social History Smoking Status: Current some day smoker Frequency of Alcohol Use: Occasionally Type of Drug Use: None Exam - Constitutional Vitals: Period Temp Pulse Resp BP Sys/[place] Pulse Ox Last 24 Hr 90.3 F-103.5 F 72-140 14-42 33-196/19-129 75-99 Exam: GENERAL: Patient is in no acute distress. NECK: Neck is supple. There is no JVD. No carotid bruits present. No thyroid masses. Trach placed CVS: First and second heart sounds are normal. There is no S3 present. Regular rate and rhythm. RESPIRATORY: Lungs are clear to auscultation without any rales or rhonchi. ABDOMEN: Soft and non-tender. Bowel sounds are present. There is no hepatosplenomegaly. EXT: There is no palpable edema. Peripheral pulses are present. Skin: No rashes Central Nervous system: General: Unresponsive on vent Speech: None Comprehension: None Facial expressions: Normal Cranial Nerves: Pupils are very sluggish. Doll's head eye movements are negative. No facial asymmetry seen Motor: Bulk and Tone is normal. Strength cannot be assessed Sensory: Cannot be assessed Reflexes: Absent and symmetrical Cerebellar function: Cannot be assessed Toes: Equivocal Gait: Cannot be assessed Results - Labs CBC & BMP: 05/22/17 12:14 05/22/17 11:45 Assessment and Plan (1) Hypoxic encephalopathy Status: Acute Assessment and plan: Continue current supportive treatment Continue [facility] protocol Once rewarmed, will perform further work-up Thank you for the consult Current Visit: Yes (2) Cardiopulmonary arrest Status: Acute Current Visit: Yes
[2017-05-22] MEDS: MINERAL OIL/PETROLATUM OPH OINT 3.5 GM TUBE BOTH EYES SCH ×2 (16:03→20:17)
[2017-05-22] MEDS ORDERED: ASPIRIN 300 MG SUPP RECTAL SCH (16:30)
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
[2017-05-22] MEDS: MEROPENEM 1,000 MG in SODIUM CHLORIDE 0.9% 100 ML IV SCH (17:30)
[2017-05-22 17:56] LABS: Basophils # 0.1 10*3/uL (0.0-0.2); Basophils % 0.3 % (0.0-0.8); Hematocrit 38.6 VOL% (42.0-52.0); Hemoglobin 12.4 GM/DL (14.0-18.0); Immature Granulocytes % 3.6 %; Immature Granulocytes Absolute 1.19 #; Lymphocytes # 2.7 10*3/uL (1.4-4.0); Lymphocytes % 8.3 % (21.2-54.2); Mean Corpuscular HGB Conc 32.1 GM/DL (32-36); Mean Corpuscular Hemoglobin 32 PG (27-34); Mean Platelet Volume 10.3 FL (9.6-12.0); Monocytes # 1.3 10*3/uL (0.11-0.8); Monocytes % 3.8 % (1.7-12.7); NRBC # 0.83 10*3/uL; Neutrophils # 27.7 10*3/uL (1.4-7.4); Platelet Count 388 T/CUMM (130-400); Red Cell Distribution Width 13.3 % (9.3-17.3)
[2017-05-22 18:07] LABS: INR 2.5; Partial Thromboplastin Time 35.5 SECS (0-40)
[2017-05-22 18:08] LABS: PT Patient Result 27.8 SECS
--- NOTE | 2017-05-22 18:09 | Operative Note ---
Date of procedure: 05/22/17 Pre-op diagnosis: Bilateral epistaxis, coagulopathy Post-op diagnosis: same Procedure: Bilateral anterior posterior packing performed at bedside using sinus foam packing. The nasal airway was suctioned and the sinus foam packing was injected bilaterally the patient tolerated the procedure well the packing was placed posteriorly and anteriorly bilaterally throughout the complete length of the nasal cavity Anesthesia: other (The patient is currently sedated) Surgeon / Physician: Bautista Mcclure Estimated blood loss: none Specimens: none sent Condition: stable Disposition: ICU Results - Labs CBC & BMP: 05/22/17 17:53 05/22/17 11:45 Discharge Plan - Discharge Medications No Action HYDROcodone/ACETAMIN 7.5-325 [[place] 7.5-325] 1 tablet PO Q4H PRN #30 tablet PRN Reason: Pain Moderate (4-7) - Follow Up or Referral - Forms/Instructions
[2017-05-22 18:16] LABS: Band Neutrophils 5 % (0-10); Burr Cells Slight; Lymphocytes 14 % (20-55); Nucleated Red Blood Cells 3 (0-5); Platelet Estimate Adequate; Poikilocytosis Slight; Segmented Neutrophils 79 % (50-85); Total Cells Counted 100
[2017-05-22 18:36] LABS: Calcium 6.6 MG/DL (8.5-10.1); Magnesium 2.3 MG/DL (1.8-2.4); Osmolality,Calculated 299.3 MOS/KG (273-304); Potassium 4.6 MMOL/L (3.5-5.1)
[2017-05-22 18:42] LABS: CKMB % 2.1 %
[2017-05-22 18:59] LABS: Troponin I Only 9.83 NG/ML (0.00-0.045)
--- NOTE | 2017-05-22 19:30 | Event Note ---
General Surgery Progress Note Chief complaint This patient is a 51-year-old man who developed respiratory distress and respiratory arrest for which I was asked to assist with airway management and underwent emergency cricothyroidotomy on 05/21/2017 Interval history The patient is on hypothermic protocol but he arrested several times last night even twice after the initial respiratory arrest. He is acidotic and severely ill. I discussed his care with Dr. Smith and Dr. Bautista Mcclure. I am uncertain of the exact location of the emergent airway that was placed yesterday evening as mentioned in my note and I have gotten Dr. Mcclure involved because of this. Physical exam Patient is sedated and paralyzed on hypothermia protocol Airway is in place and appears to be functioning well Labs Reviewed Imaging Reviewed, airway and appropriate position, no obvious pneumothorax Assessment and plan Continue respiratory support through emergent airway was placed yesterday I appreciate the assistance of Dr. Mcclure. I will defer to him regarding exchange of this emergent airway for a more definitive long-term airway but will be available to assist with any problems that arise.
[2017-05-23] MEDS: SODIUM BICARB INJ 150 MEQ in DEXTROSE 5% 850 ML IV SCH ×5 (00:18→23:49)
[2017-05-23] MEDS: INSULIN REGULAR 100 UNIT/ML IV SCH ×9 (00:19→23:50)
[2017-05-23 00:21] LABS: Basophils # 0.1 10*3/uL (0.0-0.2); Basophils % 0.2 % (0.0-0.8); Hemoglobin 12.3 GM/DL (14.0-18.0); Immature Granulocytes % 2.2 %; Lymphocytes # 2.2 10*3/uL (1.4-4.0); Lymphocytes % 7.8 % (21.2-54.2); Mean Corpuscular HGB Conc 33.2 GM/DL (32-36); Mean Corpuscular Hemoglobin 32 PG (27-34); Mean Corpuscular Volume 96.4 FL (87-102); Mean Platelet Volume 10.5 FL (9.6-12.0); Monocytes # 0.9 10*3/uL (0.11-0.8); Monocytes % 3.4 % (1.7-12.7); NRBC # 0.42 10*3/uL; Neutrophils # 24.1 10*3/uL (1.4-7.4); Neutrophils % 86.4 % (38.7-73.9); Platelet Count 346 T/CUMM (130-400); Red Blood Count 3.84 MC/CUMM (3.8-5.5); Red Cell Distribution Width 13.4 % (9.3-17.3); White Blood Count 27.9 T/CUMM (4-12)
[2017-05-23 00:26] LABS: INR 2.6; Partial Thromboplastin Time 35.5 SECS (0-40)
[2017-05-23 00:30] LABS: PT Patient Result 28.7 SECS
[2017-05-23 00:40] LABS: Calcium 6.1 MG/DL (8.5-10.1); Magnesium 2.2 MG/DL (1.8-2.4); Osmolality,Calculated 301.3 MOS/KG (273-304); Potassium 4.4 MMOL/L (3.5-5.1)
[2017-05-23] MEDS: fentaNYL INJ 1,250 MCG in SODIUM CHLORIDE 0.9% 225 ML IV SCH ×4 (00:41→22:38)
[2017-05-23 01:05] LABS: Band Neutrophils 19 % (0-10); Lymphocytes 8 % (20-55); Nucleated Red Blood Cells 2 (0-5); Segmented Neutrophils 73 % (50-85)
[2017-05-23 01:06] LABS: Platelet Estimate Adequate; Total Cells Counted 100
[2017-05-23] MEDS: PROPOFOL 1,000 MG/100 ML BOTTLE IV SCH (01:33)
[2017-05-23] MEDS: ALBUTEROL/IPRATROPIUM 3 ML NEB RESP TX SCH ×5 (03:48→19:25)
[2017-05-23] MEDS: NOREPINEPHRINE 16 MG in SODIUM CHLORIDE 0.9% 234 ML IV SCH ×3 (04:03→20:55)
[2017-05-23] MEDS: LORazepam INJ 40 MG in DEXTROSE 5% 30 ML IV SCH ×4 (04:04→17:45)
[2017-05-23] MEDS: FAMOTIDINE 20 MG/2 ML VIAL IV SCH (04:36)
[2017-05-23 05:41] LABS: ABG Base Excess -9.4 MMOL/L (-2.5-2.5); ABG HCO3 16.9 MMOL/L (20-26); ABG Oxygen Saturation 90.4 % (95-100); ABG PCO2 62.6 MM HG (35-48); ABG TCO2 19.5 MMOL/L (23-27)
[2017-05-23 05:42] LABS: ABG PH 7.133 (7.35-7.45)
[2017-05-23 05:44] LABS: Basophils # 0.1 10*3/uL (0.0-0.2); Basophils % 0.2 % (0.0-0.8); Hematocrit 36.1 VOL% (42.0-52.0); Hemoglobin 12.1 GM/DL (14.0-18.0); Immature Granulocytes % 2.4 %; Immature Granulocytes Absolute 0.69 #; Lymphocytes # 1.8 10*3/uL (1.4-4.0); Lymphocytes % 6.2 % (21.2-54.2); Mean Corpuscular HGB Conc 33.5 GM/DL (32-36); Mean Corpuscular Hemoglobin 32 PG (27-34); Mean Platelet Volume 10.1 FL (9.6-12.0); Monocytes # 1.3 10*3/uL (0.11-0.8); Monocytes % 4.6 % (1.7-12.7); NRBC # 0.24 10*3/uL; Neutrophils # 24.5 10*3/uL (1.4-7.4); Neutrophils % 86.6 % (38.7-73.9); Platelet Count 320 T/CUMM (130-400); Red Cell Distribution Width 13.3 % (9.3-17.3); White Blood Count 28.3 T/CUMM (4-12)
[2017-05-23 06:05] LABS: Partial Thromboplastin Time 34.1 SECS (0-40)
[2017-05-23 06:06] LABS: Band Neutrophils 5 % (0-10); Lymphocytes 8 % (20-55); Metamyelocytes 1 %; Nucleated Red Blood Cells 3 (0-5); Segmented Neutrophils 81 % (50-85); Total Cells Counted 100
[2017-05-23] MEDS: CISATRACURIUM 200 MG in SODIUM CHLORIDE 0.9% 100 ML IV SCH ×3 (06:06→17:44)
[2017-05-23 06:07] LABS: Microcytosis 1+
[2017-05-23 06:10] LABS: INR 2.6
[2017-05-23 06:13] LABS: PT Patient Result 29.4 SECS
[2017-05-23 06:24] LABS: Magnesium 2.2 MG/DL (1.8-2.4); Osmolality,Calculated 302.3 MOS/KG (273-304); Potassium 3.9 MMOL/L (3.5-5.1)
[2017-05-23 06:37] LABS: Calcium 5.7 MG/DL (8.5-10.1)
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
--- NOTE | 2017-05-23 07:25 | XRay Report ---
Exam: XR chest 1V portable Date: 05/23/2017 4:00 AM Indication: Follow-up ventilator respiratory failure Comparison: 05/22/2017 Technical: AP Findings: Endotracheal tube nasogastric tube are present. External cardiac leads are noted. Patchy alveolar interstitial densities are present bilaterally. No obvious effusions. Mediastinum is otherwise intact. No pneumothorax. Impression: 1. Stable appearance of life support tubing 2. Persistent bilateral perihilar alveolar infiltrates similar to previous study PROCEDURE INTERPRETED AT [facility] DEPARTMENT OF RADIOLOGY Final Report Signed by: Dr. Arnulof Arnold
[2017-05-23] MEDS: HYDROCORTISONE 100 MG VIAL IV SCH ×2 (07:44→19:54)
[2017-05-23] MEDS ORDERED: CALCIUM GLUCONATE 2,000 MG in SODIUM CHLORIDE 0.9% 100 ML IV ONE ×2 (08:00→19:36)
[2017-05-23] MEDS: MINERAL OIL/PETROLATUM OPH OINT 3.5 GM TUBE BOTH EYES SCH ×3 (08:20→20:46)
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
--- NOTE | 2017-05-23 09:13 | Cardiology Progress Note ---
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 Calculation 23 BUN/Creatinine Ratio 11.00 Glucose 234 H POC Glucose Calculated Osmolality 302.3 Lactic Acid Calcium 5.7 L* Phosphorus Magnesium 2.2 Lactate Dehydrogenase 1729 H Total Creatine Kinase CK-MB (CK-2) CK and CKMB Interp Troponin I HIV 1&2 Antigen & Ab 05/23/17 05/23/17 05/23/17 07:29 Unknown Unknown WBC RBC Hgb Hct MCV MCH MCHC RDW Plt Count MPV Neut % (Auto) Lymph % (Auto) [place] % (Auto) Eos % (Auto) Baso % (Auto) Neut # (Auto) Lymph # (Auto) [place] # (Auto) Eos # (Auto) Baso # (Auto) Total Counted Immature Gran % Nucleated RBC % Immature Gran # Segmented Neutrophils Band Neutrophils Lymphocytes Monocytes Metamyelocytes Nucleated RBCs Nucleated RBCs # Platelet Estimate Giant Platelets Poikilocytosis Anisocytosis Microcytosis Macrocytosis Nuria Cells Morphology Comment INR PT Patient/Control Mix Circ Anticoag PTT ABG pH ABG pCO2 ABG pO2 ABG HCO3 ABG Total CO2 ABG O2 Saturation ABG Base Excess Sodium 141 Potassium 4.4 Chloride 102 Carbon Dioxide 18 L Anion Gap 25.4 H BUN 49 H Creatinine 4.30 H GFR Calculation 24 BUN/Creatinine Ratio 11.00 Glucose 251 H POC Glucose 245 H Calculated Osmolality 301.3 Lactic Acid Calcium 6.1 L Phosphorus > 9.0 H Magnesium 2.2 Lactate Dehydrogenase 1535 H Total Creatine Kinase CK-MB (CK-2) CK and CKMB Interp Troponin I HIV 1&2 Antigen & Ab
[2017-05-23] MEDS: CHLORHEXIDINE 0.12% ORAL RINSE 60 ML BOTTLE SWISH/SPIT SCH ×2 (10:20→20:45)
[2017-05-23] MEDS: PHENYLEPHRINE INJ 160 MG in SODIUM CHLORIDE 0.9% 234 ML IV SCH (11:15)
--- NOTE | 2017-05-23 11:15 | Infectious Disease Progress ---
Assessment and Plan (1) Acute kidney failure, unspecified Status: Acute Assessment and plan: Most likely due to profound hypotension, no better today and still oliguric. He may need dialysis. Current Visit: Yes (2) Acute respiratory failure Status: Acute Current Visit: Yes Qualifiers: Respiratory failure complication: hypoxia and hypercapnia Qualified Code(s) : J96.01 - Acute respiratory failure with hypoxia; J96.02 - Acute respiratory failure with hypercapnia (3) Cardiopulmonary arrest Status: Acute Current Visit: Yes (4) Leukocytosis Status: Acute Assessment and plan: Leukocytosis has improved today, still no obvious source of infection with shock. Continue empiric antibiotics and follow-up blood culture results. Current Visit: Yes (5) Metabolic acidosis Status: Acute Current Visit: Yes (6) Septic shock Status: Acute Assessment and plan: Source not clear at this time but we are awaiting blood cultures. Urine culture negative. Recommendations: Continue meropenem and daptomycin and follow-up culture results. Current Visit: Yes (7) Laceration of left ankle Status: Acute Current Visit: No (8) Open fracture of medial malleolus of right ankle Status: Acute Assessment and plan: The surgical wound from this repair does not appear to be infected. Current Visit: No (9) Morbid obesity Status: Chronic Current Visit: No Infectious Disease - PN: Subj Interval history: Patient still on therapeutic hypothermia, being weaned off pressors, still oliguric. Infectious Disease Exam (PN) - Constitutional Vitals: Temp Pulse Resp BP Pulse Ox 92.1 F L 91 H 22 114/52 96 05/23/17 09:00 05/23/17 09:00 05/23/17 11:00 05/23/17 09:15 05/23/17 09:15 General appearance: over weight, other (On the ventilator sedated) Exam: General appearance: Unresponsive on vent. - Eye Eye exam: Present: EOMI. no icterus Pupils: Present: XIOMY - Neck Neck exam: Large, tracheostomy present - Respiratory Respiratory exam: vesicular BS, no crepitations or wheezes - Cardiovascular Cardiovascular exam: regular rate and rhythm, no murmurs - GI/Abdominal GI/Abdominal exam: Obese, absent bowel sounds - Extremities Exam Extremities exam: Splint to right leg - Skin Skin exam: no rash Results - Labs CBC & BMP: 05/23/17 05:30 05/23/17 Unknown Lab Results: I have reviewed the past 24 hour labs (Blood cultures remain negative) Quality Measures - VTE Contraindication to Pharmacological VTE Prophylaxis: High Risk of Bleeding
[2017-05-23 12:22] LABS: Basophils # 0.1 10*3/uL (0.0-0.2); Basophils % 0.2 % (0.0-0.8); Hematocrit 35.8 VOL% (42.0-52.0); Immature Granulocytes % 2.1 %; Immature Granulocytes Absolute 0.54 #; Lymphocytes # 1.2 10*3/uL (1.4-4.0); Lymphocytes % 4.8 % (21.2-54.2); Mean Corpuscular HGB Conc 33.5 GM/DL (32-36); Mean Corpuscular Hemoglobin 31 PG (27-34); Mean Corpuscular Volume 93.2 FL (87-102); Mean Platelet Volume 10.4 FL (9.6-12.0); Monocytes # 1.1 10*3/uL (0.11-0.8); Monocytes % 4.4 % (1.7-12.7); NRBC # 0.12 10*3/uL; Neutrophils # 22.4 10*3/uL (1.4-7.4); Neutrophils % 88.5 % (38.7-73.9); Platelet Count 324 T/CUMM (130-400); Red Blood Count 3.84 MC/CUMM (3.8-5.5); Red Cell Distribution Width 13.3 % (9.3-17.3); White Blood Count 25.4 T/CUMM (4-12)
[2017-05-23 12:35] LABS: Partial Thromboplastin Time 32.9 SECS (0-40)
[2017-05-23 12:40] LABS: INR 2.5
--- NOTE | 2017-05-23 13:11 | Hospitalist Progress Note ---
Assessment and Plan (1) Anoxic encephalopathy syndrome Status: Acute Assessment and plan: The patient has elevated cardiac enzymes and liver function testing and creatinine elevation consistent with anoxia. The patient continues on cooling protocol. Antibiotics are as designed by Dr. Sanford. Fracture care per Dr. García. Ventilator management per Dr. Smith. I coordinate care with Dr. Moran and he will arrange for dialysis. Current Visit: Yes (2) Acute respiratory failure Status: Acute Current Visit: Yes Qualifiers: Respiratory failure complication: hypoxia and hypercapnia Qualified Code(s) : J96.01 - Acute respiratory failure with hypoxia; J96.02 - Acute respiratory failure with hypercapnia (3) Septic shock Status: Acute Current Visit: Yes Hospitalist: Subjective Interval history: The patient remains unresponsive likely due to anoxia. Exam - Constitutional Vitals: Period Temp Pulse Resp BP Sys/[place] Pulse Ox Last 24 Hr 90.3 F-92.7 F 78-91 19-22 97-124/46-58 95-100 General appearance: no acute distress - Respiratory Respiratory exam: Present: clear to auscultation bilaterally - Cardiovascular Cardiovascular exam: Present: regular rate and rhythm - GI/Abdominal GI/Abdominal exam: Present: hypoactive bowel sounds Results - Labs CBC & BMP: 05/23/17 12:10 05/23/17 Unknown Lab Results: I have reviewed the past 24 hour labs Quality Measures - VTE Contraindication to Pharmacological VTE Prophylaxis: High Risk of Bleeding
[2017-05-23 13:27] LABS: Calcium 5.9 MG/DL (8.5-10.1); Magnesium 2.2 MG/DL (1.8-2.4); Osmolality,Calculated 299.4 MOS/KG (273-304); Potassium 3.9 MMOL/L (3.5-5.1)
[2017-05-23 13:32] LABS: Band Neutrophils 19 % (0-10); Hypochromasia Slight; Lymphocytes 10 % (20-55); Promyelocytes 1 %; Segmented Neutrophils 63 % (50-85); Total Cells Counted 100
[2017-05-23 13:33] LABS: Microcytosis Slight; Platelet Estimate Adequate
--- NOTE | 2017-05-23 14:19 | Event Note ---
We will plan to begin dialysis tomorrow. With talked with Dr. Bui and a catheter will be placed tomorrow. We have discussed kidney failure and the probable need for dialysis with the siblings who are his only family. This afternoon he has made a few cc of urine and with a blood pressure of 120 were going to go ahead and try 240 mg Lasix to see if we can encourage some urine volume. We have decreased his bicarb infusion to 75 cc/h since his measured bicarb is 22.
--- NOTE | 2017-05-23 14:53 | Neurology Progress Note ---
Neurology - PN : Subjective Interval history: Continue to remain same. Unresponsive on vent. Getting hypothermia protocol. No seizure-like activity reported. Exam (Progress Note) - Constitutional Vitals: Period Temp Pulse Resp BP Sys/[place] Pulse Ox Last 24 Hr 90.3 F-92.7 F 78-91 19-22 96-124/45-58 94-100 Exam: GENERAL: Patient is in no acute distress. NECK: Neck is supple. There is no JVD. No carotid bruits present. No thyroid masses. Trach placed CVS: First and second heart sounds are normal. There is no S3 present. Regular rate and rhythm. RESPIRATORY: Lungs are clear to auscultation without any rales or rhonchi. ABDOMEN: Soft and non-tender. Bowel sounds are present. There is no hepatosplenomegaly. EXT: There is no palpable edema. Peripheral pulses are present. Skin: No rashes Central Nervous system: General: Unresponsive on vent Speech: None Comprehension: None Facial expressions: Normal Cranial Nerves: Pupils are very sluggish. Doll's head eye movements are negative. No facial asymmetry seen Motor: Bulk and Tone is normal. Strength cannot be assessed Sensory: Cannot be assessed Reflexes: Absent and symmetrical Cerebellar function: Cannot be assessed Toes: Equivocal Gait: Cannot be assessed Results - Labs CBC & BMP: 05/23/17 12:10 05/23/17 Unknown Assessment and Plan (1) Hypoxic encephalopathy Status: Acute Assessment and plan: Continue current supportive treatment Continue [facility] protocol No new recommendations at this time We will reevaluate once rewarmed Current Visit: Yes (2) Cardiopulmonary arrest Status: Acute Assessment and plan: No active issues at this time Current Visit: Yes Quality Measures - VTE Contraindication to Pharmacological VTE Prophylaxis: High Risk of Bleeding
[2017-05-23] MEDS ORDERED: FUROSEMIDE INJ 240 MG in SODIUM CHLORIDE 0.9% 50 ML IV ONE (15:00)
--- NOTE | 2017-05-23 16:20 | Event Note ---
Mr. Lisa was hospitalized on November 21, 2016. The patient is presently incapacitated. The patient is on life support ventilation in intensive care unit at [facility]. Mr. Lisa is not able to make decisions or tender his financial matters.
[2017-05-23] MEDS: MEROPENEM 1,000 MG in SODIUM CHLORIDE 0.9% 100 ML IV SCH (17:09)
--- NOTE | 2017-05-23 18:30 | Orthopedic Progress Note ---
Orthopedics - Subjective Interval history: Still intubated splint dressing dry no real change. Clinically scheduled for dialysis tomorrow as creatinine continues to go. Spoke with brother and sister earlier today about Mr. Lisa about his case is as far as I can describe, mostly related to his orthopedic injury and the events of Sunday night. Obviously he is critically ill and they appear to be aware. Appreciate all the medical ICU support Exam - Constitutional Vitals: Period Temp Pulse Resp BP Sys/[place] Pulse Ox Last 24 Hr 90.3 F-92.7 F 78-99 19-22 93-124/45-58 94-100 Results - Labs CBC & BMP: 05/23/17 12:10 05/23/17 Unknown Quality Measures - VTE Contraindication to Pharmacological VTE Prophylaxis: High Risk of Bleeding
[2017-05-23 18:45] LABS: Basophils # 0.1 10*3/uL (0.0-0.2); Basophils % 0.2 % (0.0-0.8); Hemoglobin 11.5 GM/DL (14.0-18.0); Immature Granulocytes % 2.5 %; Immature Granulocytes Absolute 0.64 #; Lymphocytes # 1.3 10*3/uL (1.4-4.0); Lymphocytes % 5.2 % (21.2-54.2); Mean Corpuscular HGB Conc 33.8 GM/DL (32-36); Mean Corpuscular Hemoglobin 32 PG (27-34); Mean Corpuscular Volume 93.7 FL (87-102); Mean Platelet Volume 10.1 FL (9.6-12.0); Monocytes # 1.3 10*3/uL (0.11-0.8); Monocytes % 5.1 % (1.7-12.7); NRBC # 0.09 10*3/uL; Neutrophils # 22.5 10*3/uL (1.4-7.4); Platelet Count 296 T/CUMM (130-400); Red Blood Count 3.63 MC/CUMM (3.8-5.5); Red Cell Distribution Width 13.3 % (9.3-17.3); White Blood Count 25.8 T/CUMM (4-12)
[2017-05-23 18:46] LABS: ABG Base Excess -6.9 MMOL/L (-2.5-2.5); ABG HCO3 18.7 MMOL/L (20-26); ABG Oxygen Saturation 89.4 % (95-100); ABG PCO2 68.5 MM HG (35-48); ABG PO2 72.7 MM HG (80-95)
[2017-05-23 18:56] LABS: INR 2.1; PT Patient Result 23.4 SECS; Partial Thromboplastin Time 33.7 SECS (0-40)
[2017-05-23 18:57] LABS: ABG PH 7.146 (7.35-7.45)
[2017-05-23 19:06] LABS: Magnesium 2.2 MG/DL (1.8-2.4); Osmolality,Calculated 298.5 MOS/KG (273-304); Potassium 4.1 MMOL/L (3.5-5.1)
[2017-05-23 19:11] LABS: Calcium 5.6 MG/DL (8.5-10.1)
[2017-05-23 19:23] LABS: Band Neutrophils 5 % (0-10); Lymphocytes 8 % (20-55); Platelet Estimate Normal; Segmented Neutrophils 83 % (50-85); Total Cells Counted 100
[2017-05-23 19:24] LABS: Burr Cells Few; Poikilocytosis Slight
[2017-05-23] MEDS ORDERED: HEPARIN/NACL 0.9% 2 UNITS/ML 500 ML IV ONE (19:30)
[2017-05-23] MEDS ORDERED: SODIUM BICARBONATE 50 MEQ/50 ML SYRINGE IV ONE ×2 (21:52→22:00)
[2017-05-23] MEDS ORDERED: SODIUM CHLORIDE 0.9% 1,000 ML IV ONE (22:31)
[2017-05-24] MEDS: ALBUTEROL/IPRATROPIUM 3 ML NEB RESP TX SCH ×6 (00:05→19:23)
[2017-05-24] MEDS: CISATRACURIUM 200 MG in SODIUM CHLORIDE 0.9% 100 ML IV SCH ×3 (00:19→11:11)
[2017-05-24] MEDS: PROPOFOL 1,000 MG/100 ML BOTTLE IV SCH (00:33)
[2017-05-24] MEDS: PHENYLEPHRINE INJ 160 MG in SODIUM CHLORIDE 0.9% 234 ML IV SCH ×3 (00:45→17:09)
[2017-05-24 01:43] LABS: Basophils # 0.1 10*3/uL (0.0-0.2); Basophils % 0.2 % (0.0-0.8); Hematocrit 33.1 VOL% (42.0-52.0); Hemoglobin 11.2 GM/DL (14.0-18.0); Immature Granulocytes % 2.4 %; Immature Granulocytes Absolute 0.55 #; Lymphocytes # 1.3 10*3/uL (1.4-4.0); Lymphocytes % 5.6 % (21.2-54.2); Mean Corpuscular HGB Conc 33.8 GM/DL (32-36); Mean Corpuscular Hemoglobin 32 PG (27-34); Mean Corpuscular Volume 93.5 FL (87-102); Mean Platelet Volume 10.2 FL (9.6-12.0); Monocytes # 1.3 10*3/uL (0.11-0.8); Monocytes % 5.5 % (1.7-12.7); Neutrophils # 19.8 10*3/uL (1.4-7.4); Neutrophils % 86.3 % (38.7-73.9); Platelet Count 307 T/CUMM (130-400); Red Blood Count 3.54 MC/CUMM (3.8-5.5); Red Cell Distribution Width 13.4 % (9.3-17.3); White Blood Count 22.9 T/CUMM (4-12)
[2017-05-24 01:45] LABS: ABG Base Excess -4.2 MMOL/L (-2.5-2.5); ABG HCO3 20.8 MMOL/L (20-26); ABG Oxygen Saturation 92.9 % (95-100); ABG PCO2 66.8 MM HG (35-48); ABG PO2 79.4 MM HG (80-95); ABG TCO2 23.5 MMOL/L (23-27)
[2017-05-24 01:47] LABS: ABG PH 7.194 (7.35-7.45)
[2017-05-24 01:53] LABS: Partial Thromboplastin Time 32.2 SECS (0-40)
[2017-05-24 01:59] LABS: PT Patient Result 22.1 SECS
[2017-05-24] MEDS: DOPamine 800 MG/250 ML PREMIX IV SCH (02:03)
[2017-05-24] MEDS: fentaNYL INJ 1,250 MCG in SODIUM CHLORIDE 0.9% 225 ML IV SCH ×5 (02:03→23:03)
[2017-05-24 02:19] LABS: Band Neutrophils 3 % (0-10); Lymphocytes 8 % (20-55); Segmented Neutrophils 87 % (50-85)
[2017-05-24 02:22] LABS: Burr Cells Few; Platelet Estimate Normal; Total Cells Counted 100
[2017-05-24 02:47] LABS: Albumin 1.7 G/DL (3.4-5.0); Osmolality,Calculated 303.1 MOS/KG (273-304); Potassium 4.4 MMOL/L (3.5-5.1); Total Protein 4.8 G/DL (6.4-8.3)
[2017-05-24] MEDS: INSULIN REGULAR 100 UNIT/ML IV SCH ×8 (02:48→21:43)
[2017-05-24 02:49] LABS: Calcium 5.4 MG/DL (8.5-10.1)
[2017-05-24] MEDS: LORazepam INJ 40 MG in DEXTROSE 5% 30 ML IV SCH ×3 (03:10→22:39)
[2017-05-24] MEDS ORDERED: CALCIUM GLUCONATE 3,000 MG in SODIUM CHLORIDE 0.9% 100 ML IV ONE (04:00)
[2017-05-24 04:16] LABS: ABG Base Excess -4.4 MMOL/L (-2.5-2.5); ABG HCO3 20.6 MMOL/L (20-26); ABG Oxygen Saturation 84.9 % (95-100); ABG PO2 60.9 MM HG (80-95); ABG TCO2 23.9 MMOL/L (23-27)
[2017-05-24 04:20] LABS: ABG PCO2 70.1 MM HG (35-48); ABG PH 7.178 (7.35-7.45)
[2017-05-24 04:22] LABS: Basophils # 0.1 10*3/uL (0.0-0.2); Basophils % 0.2 % (0.0-0.8); Hematocrit 32.6 VOL% (42.0-52.0); Hemoglobin 11.1 GM/DL (14.0-18.0); Immature Granulocytes % 2.6 %; Immature Granulocytes Absolute 0.66 #; Lymphocytes # 1.4 10*3/uL (1.4-4.0); Lymphocytes % 5.6 % (21.2-54.2); Mean Corpuscular Hemoglobin 32 PG (27-34); Mean Corpuscular Volume 92.6 FL (87-102); Mean Platelet Volume 10.5 FL (9.6-12.0); Monocytes # 1.4 10*3/uL (0.11-0.8); Monocytes % 5.4 % (1.7-12.7); NRBC # 0.14 10*3/uL; Neutrophils # 21.7 10*3/uL (1.4-7.4); Neutrophils % 86.2 % (38.7-73.9); Platelet Count 330 T/CUMM (130-400); Red Blood Count 3.52 MC/CUMM (3.8-5.5); Red Cell Distribution Width 13.7 % (9.3-17.3); White Blood Count 25.2 T/CUMM (4-12)
[2017-05-24] MEDS: NOREPINEPHRINE 16 MG in SODIUM CHLORIDE 0.9% 234 ML IV SCH ×3 (04:29→18:57)
--- NOTE | 2017-05-24 04:43 | EKG Report ---
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
[2017-05-24 05:18] LABS: Band Neutrophils 6 % (0-10); Lymphocytes 6 % (20-55); Metamyelocytes 1 %; Nucleated Red Blood Cells 1 (0-5); Segmented Neutrophils 80 % (50-85); Total Cells Counted 100
[2017-05-24 05:19] LABS: Hypochromasia Slight; Microcytosis Slight; Partial Thromboplastin Time 32.2 SECS (0-40)
[2017-05-24 05:24] LABS: INR 1.9; PT Patient Result 20.4 SECS
[2017-05-24] MEDS: FAMOTIDINE 20 MG/2 ML VIAL IV SCH (05:27)
[2017-05-24 06:16] LABS: Potassium 4.4 MMOL/L (3.5-5.1)
[2017-05-24 06:19] LABS: Calcium 5.9 MG/DL (8.5-10.1)
[2017-05-24 06:20] LABS: Albumin 1.7 G/DL (3.4-5.0); Magnesium 2.2 MG/DL (1.8-2.4)
[2017-05-24 06:21] LABS: Osmolality,Calculated 300.3 MOS/KG (273-304)
--- NOTE | 2017-05-24 06:42 | Pulmonology Progress Note ---
Pulmonary - PN: Subj Interval history: 51-year-old man that had a cardiac arrest. Came in with sepsis had a difficult intubation. Now has ET tube via cricothyroidotomy. ABGs are a little better but still PO2 is only 76 on 100% oxygen pH of 7.13. He is on a bicarb infusion. Presently on Arctic sun and hypothermic. Urine output has dropped off to almost nothing. CK-MB markedly elevated. I think it would be worthwhile to have nephrology and cardiology to see him as well. He is on broad -spectrum antibiotics for sepsis. 05/24/2017 patient is not responsive. Remains hypotensive requiring pressors. Oxygen saturation has dropped and patient is now on 100% oxygen with 10 of PEEP. Will cut up to 12 of PEEP and cut back to 90% oxygen. Still has elevated PCO2 and combined metabolic respiratory acidosis. Chest x-ray is showing infiltrates now more on the right than the left. Likely ARDS. He has been rewarmed almost up to normal temperature. Await word from neurology as far as brain function. Prognosis is poor. Continuing broad-spectrum antibiotics for sepsis. Apparent hypoxic brain injury. Exam (Progress Note) - Constitutional Vitals: Period Temp Pulse Resp BP Sys/[place] Pulse Ox Last 24 Hr 90.7 F-97.9 F 87-124 19-22 84-124/38-58 84-98 Exam: Systolic blood pressure is 105. He is on Mich-Synephrine and Levophed pressors. His pupils are small and sluggishly reactive. Orotracheal tube in place. Patient is not moving. Sedatives are being withdrawn. Neck is supple. Chest sounds clear. Heart normal rate and rhythm I do not hear murmurs. Abdomen soft. Decreased bowel sounds. Extremities no clubbing cyanosis trace of edema splint on right leg. Results - Labs CBC & BMP: 05/24/17 04:07 05/24/17 01:30 Lab Results: I have reviewed the past 24 hour labs - Diagnostic Findings Procedure: Chest x-ray: image reviewed by me (Infiltrates right upper lobe more than left upper lobe. ET tube good position.) Assessment and Plan (1) Sepsis Status: Acute Assessment and plan: Patient had fever marked elevated white count tachycardia. Presently on vancomycin and Zosyn. Infectious disease to see. Apparently he has had purulent drainage from his right leg. 05/23/2017 continuing broad-spectrum antibiotics. Continuing pressors. Continuing fluid resuscitation including bicarb. Cultures are negative thus far. Patient on daptomycin and Merrem. Will add Solu-Cortef 05/24/2017 continuing broad-spectrum antibiotics. Culture from leg not quite out yet. Growing gram-positive cocci and gram-negative rods. He is on daptomycin and Merrem. Current Visit: Yes (2) Acute respiratory failure Status: Acute Assessment and plan: His chest x-ray looks pretty good. Remains hypoxemic despite FiO2 of 100%. Marked metabolic acidosis. Presently has orotracheal tube via his cricoid. Will get ENT to see if we can get a more permanent airway. 05/23/2017 severe combined metabolic and respiratory acidosis. PO2 only 76 on 100% oxygen. Really cannot wean at this point. 05/24/2017 ARDS, metabolic and respiratory acidosis. On large minute ventilation high PEEP and high oxygen. Current Visit: Yes Qualifiers: Respiratory failure complication: hypoxia and hypercapnia Qualified Code(s) : J96.01 - Acute respiratory failure with hypoxia; J96.02 - Acute respiratory failure with hypercapnia (3) Septic shock Status: Acute Assessment and plan: Continuing broad-spectrum antibiotics, pressors, bicarb. He is getting a good bit of IV fluid. Renal function had worsened. 05/23/2017 continuing to require pressors and fluid resuscitation. 05/24/2017 continuing antibiotics and fluid resuscitation. Current Visit: Yes (4) Morbid obesity Status: Chronic Assessment and plan: This may complicate things with weaning. Current Visit: No (5) Open fracture of medial malleolus of right ankle Status: Acute Assessment and plan: Orthopedics to follow. 05/23/2017 apparently septic from infection at this area. 05/24/2017 orthopedics following Current Visit: No
[2017-05-24 06:55] LABS: Bilirubin,Total 2.1 MG/DL (0.2-1.0); CKMB % 1.1 %; Total Protein 4.9 G/DL (6.4-8.3)
[2017-05-24 06:58] LABS: Phosphorous 11.6 MG/DL (2.5-4.9); Troponin I Only 7.98 NG/ML (0.00-0.045)
[2017-05-24] MEDS: HYDROCORTISONE 100 MG VIAL IV SCH ×2 (07:01→18:41)
--- NOTE | 2017-05-24 07:53 | Cardiology Progress Note ---
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 Comment INR PT Patient/Control Mix Circ Anticoag PTT ABG pH ABG pCO2 ABG pO2 ABG HCO3 ABG Total CO2 ABG O2 Saturation ABG Base Excess Sodium Potassium Chloride Carbon Dioxide Anion Gap BUN Creatinine GFR Calculation BUN/Creatinine Ratio Glucose POC Glucose 189 H 165 H Calculated Osmolality Lactic Acid 2.7 H Calcium Phosphorus Magnesium Total Bilirubin AST ALT Alkaline Phosphatase Lactate Dehydrogenase Total Creatine Kinase CK-MB (CK-2) CK and CKMB Interp Troponin I Total Protein Albumin Globulin Albumin/Globulin Ratio Random Cortisol 05/24/17 05/24/17 05/24/17 01:30 01:30 01:30 WBC RBC Hgb Hct MCV MCH MCHC RDW Plt Count MPV Neut % (Auto) Lymph % (Auto) [place] % (Auto) Eos % (Auto) Baso % (Auto) Neut # (Auto) Lymph # (Auto) [place] # (Auto) Eos # (Auto) Baso # (Auto) Total Counted Immature Gran % Nucleated RBC % Immature Gran # Segmented Neutrophils Band Neutrophils Lymphocytes Monocytes Metamyelocytes Promyelocytes Nucleated RBCs Nucleated RBCs # Platelet Estimate Hypochromasia Poikilocytosis Microcytosis [place] Cells Morphology Comment INR PT Patient/Control Mix Circ Anticoag PTT ABG pH 7.194 L* ABG pCO2 66.8 H ABG pO2 79.4 L ABG HCO3 20.8 ABG Total CO2 23.5 ABG O2 Saturation 92.9 L ABG Base Excess -4.2 L Sodium 142 Potassium 4.4 Chloride 99 Carbon Dioxide 27 Anion Gap 20.4 H BUN 61 H Creatinine 5.30 H GFR Calculation 19 BUN/Creatinine Ratio 11.00 Glucose 179 H POC Glucose Calculated Osmolality 303.1 Lactic Acid Calcium 5.4 L* Phosphorus 11.1 H Magnesium Total Bilirubin 2.00 H AST 2028 H ALT 1351 H Alkaline Phosphatase 123 H Lactate Dehydrogenase Total Creatine Kinase CK-MB (CK-2) CK and CKMB Interp Troponin I Total Protein 4.8 L Albumin 1.7 L Globulin 3.1 Albumin/Globulin Ratio 0.5 L Random Cortisol 05/24/17 05/24/17 05/24/17 01:30 01:40 01:40 WBC 22.9 H RBC 3.54 L Hgb 11.2 L Hct 33.1 L MCV 93.5 MCH 32 MCHC 33.8 RDW 13.4 Plt Count 307 MPV 10.2 Neut % (Auto) 86.3 H Lymph % (Auto) 5.6 L [place] % (Auto) 5.5 Eos % (Auto) 0.0 Baso % (Auto) 0.2 Neut # (Auto) 19.8 H Lymph # (Auto) 1.3 L [place] # (Auto) 1.3 H Eos # (Auto) 0.0 Baso # (Auto) 0.1 Total Counted 100 Immature Gran % 2.4 Nucleated RBC % 0.4 Immature Gran # 0.55 Segmented Neutrophils 87 H Band Neutrophils 3 Lymphocytes 8 L Monocytes 2 Metamyelocytes Promyelocytes Nucleated RBCs Nucleated RBCs # 0.10 Platelet Estimate Normal Hypochromasia Poikilocytosis Microcytosis [place] Cells Few Morphology Comment INR 2.0 PT Patient/Control Mix 22.1 Circ Anticoag PTT 32.2 ABG pH ABG pCO2 ABG pO2 ABG HCO3 ABG Total CO2 ABG O2 Saturation ABG Base Excess Sodium Potassium Chloride Carbon Dioxide Anion Gap BUN Creatinine GFR Calculation BUN/Creatinine Ratio Glucose POC Glucose Calculated Osmolality Lactic Acid Calcium Phosphorus Magnesium 2.2 Total Bilirubin AST ALT Alkaline Phosphatase Lactate Dehydrogenase Total Creatine Kinase CK-MB (CK-2) CK and CKMB Interp Troponin I Total Protein Albumin Globulin Albumin/Globulin Ratio Random Cortisol 05/24/17 05/24/17 05/24/17 02:49 04:07 04:07 WBC 25.2 H RBC 3.52 L Hgb 11.1 L Hct 32.6 L MCV 92.6 MCH 32 MCHC 34.0 RDW 13.7 Plt Count 330 MPV 10.5 Neut % (Auto) 86.2 H Lymph % (Auto) 5.6 L [place] % (Auto) 5.4 Eos % (Auto) 0.0 Baso % (Auto) 0.2 Neut # (Auto) 21.7 H Lymph # (Auto) 1.4 [place] # (Auto) 1.4 H Eos # (Auto) 0.0 Baso # (Auto) 0.1 Total Counted 100 Immature Gran % 2.6 Nucleated RBC % 0.6 Immature Gran # 0.66 Segmented Neutrophils 80 Band Neutrophils 6 Lymphocytes 6 L Monocytes 7 Metamyelocytes 1 Promyelocytes Nucleated RBCs 1 Nucleated RBCs # 0.14 Platelet Estimate Hypochromasia Slight Poikilocytosis Microcytosis Slight [place] Cells Morphology Comment INR 1.9 PT Patient/Control Mix 20.4 Circ Anticoag PTT 32.2 ABG pH ABG pCO2 ABG pO2 ABG HCO3 ABG Total CO2 ABG O2 Saturation ABG Base Excess Sodium Potassium Chloride Carbon Dioxide Anion Gap BUN Creatinine GFR Calculation BUN/Creatinine Ratio Glucose POC Glucose 143 H Calculated Osmolality Lactic Acid Calcium Phosphorus Magnesium Total Bilirubin AST ALT Alkaline Phosphatase Lactate Dehydrogenase Total Creatine Kinase CK-MB (CK-2) CK and CKMB Interp Troponin I Total Protein Albumin Globulin Albumin/Globulin Ratio Random Cortisol 05/24/17 05/24/17 05/24/17 04:07 04:07 05:10 WBC RBC Hgb Hct MCV MCH MCHC RDW Plt Count MPV Neut % (Auto) Lymph % (Auto) [place] % (Auto) Eos % (Auto) Baso % (Auto) Neut # (Auto) Lymph # (Auto) [place] # (Auto) Eos # (Auto) Baso # (Auto) Total Counted Immature Gran % Nucleated RBC % Immature Gran # Segmented Neutrophils Band Neutrophils Lymphocytes Monocytes Metamyelocytes Promyelocytes Nucleated RBCs Nucleated RBCs # Platelet Estimate Hypochromasia Poikilocytosis Microcytosis Nuria Cells Morphology Comment INR PT Patient/Control Mix Circ Anticoag PTT ABG pH 7.178 L* ABG pCO2 70.1 H* ABG pO2 60.9 L ABG HCO3 20.6 ABG Total CO2 23.9 ABG O2 Saturation 84.9 L ABG Base Excess -4.4 L Sodium 141 Potassium 4.4 Chloride 99 Carbon Dioxide 26 Anion Gap 20.4 H BUN 57 H Creatinine 5.40 H GFR Calculation 19 BUN/Creatinine Ratio 10.00 Glucose 170 H POC Glucose 177 H Calculated Osmolality 300.3 Lactic Acid Calcium 5.9 L Phosphorus 11.6 H Magnesium 2.2 Total Bilirubin 2.10 H AST 2129 H ALT 1387 H Alkaline Phosphatase 129 H Lactate Dehydrogenase Total Creatine Kinase 86588 H D CK-MB (CK-2) 147.7 H D CK and CKMB Interp 1.1 Troponin I 7.980 H Total Protein 4.9 L Albumin 1.7 L Globulin 3.2 Albumin/Globulin Ratio 0.5 L Random Cortisol 05/24/17 06:03 WBC RBC Hgb Hct MCV MCH MCHC RDW Plt Count MPV Neut % (Auto) Lymph % (Auto) [place] % (Auto) Eos % (Auto) Baso % (Auto) Neut # (Auto) Lymph # (Auto) [place] # (Auto) Eos # (Auto) Baso # (Auto) Total Counted Immature Gran % Nucleated RBC % Immature Gran # Segmented Neutrophils Band Neutrophils Lymphocytes Monocytes Metamyelocytes Promyelocytes Nucleated RBCs Nucleated RBCs # Platelet Estimate Hypochromasia Poikilocytosis Microcytosis Nuria Cells Morphology Comment INR PT Patient/Control Mix Circ Anticoag PTT ABG pH ABG pCO2 ABG pO2 ABG HCO3 ABG Total CO2 ABG O2 Saturation ABG Base Excess Sodium Potassium Chloride Carbon Dioxide Anion Gap BUN Creatinine GFR Calculation BUN/Creatinine Ratio Glucose POC Glucose 175 H Calculated Osmolality Lactic Acid Calcium Phosphorus Magnesium Total Bilirubin AST ALT Alkaline Phosphatase Lactate Dehydrogenase Total Creatine Kinase CK-MB (CK-2) CK and CKMB Interp Troponin I Total Protein Albumin Globulin Albumin/Globulin Ratio Random Cortisol
--- NOTE | 2017-05-24 08:07 | Nephrology Progress Note ---
Nephrology - PN: Subj Interval history: Mr. Lisa is seen in follow-up of his acute renal failure and multisystem illness. He is unresponsive pupils are weakly if reactive. Blood pressures 100 systolic and oxygen saturations are 98% on ventilator support he has a significant respiratory acidosis with a component of metabolic acidosis as well. He did not respond to a large dose Lasix. His chest x-ray is now beginning to develop infiltrates and he remains critically ill. Today will be placing a temporary dialysis catheter and attempting hemodialysis. His hemodynamics may be too fragile to allow effective dialysis but we will attempted. We discussed all of this with the patient's brother and sister yesterday. Plan placement of dialysis catheter to bedside and an attempted hemodialysis. His hypotension may make this difficult. Exam (PN)-Nephrology - Vital Signs Vital signs: Period Temp Pulse Resp BP Sys/[place] Pulse Ox Last 24 Hr 90.7 F-98.4 F 87-125 21-22 84-124/38-58 84-98 - Lab 05/24/17 04:07 05/24/17 04:07 Most recent lab results ABG pH 7.178 (7.35-7.45) L* 05/24/17 04:07 ABG pCO2 70.1 MM HG (35-48) H* 05/24/17 04:07 ABG pO2 60.9 MM HG (80-95) L 05/24/17 04:07 ABG HCO3 20.6 MMOL/L (20-26) 05/24/17 04:07 ABG O2 Saturation 84.9 % (95-100) L 05/24/17 04:07 Calcium 5.9 MG/DL (8.5-10.1) L 05/24/17 04:07 Phosphorus 11.6 MG/DL (2.5-4.9) H 05/24/17 04:07 Magnesium 2.2 MG/DL (1.8-2.4) 05/24/17 04:07 Assessment and Plan (1) Acute kidney failure, unspecified Status: Acute Assessment and plan: Will likely need dialysis to bridge to recovery of kidney function Current Visit: Yes (2) Cardiopulmonary arrest Status: Acute Current Visit: Yes (3) Hypoxic encephalopathy Status: Acute Current Visit: Yes
--- NOTE | 2017-05-24 08:25 | XRay Report ---
Exam: XR chest 1V portable Indication: Intubated, ventilator Comparison study: 05/23/2017 Findings: Endotracheal esophagogastric tubes are in similar position. Low lung volumes are noted. There is been slight worsening of patchy opacities within the perihilar regions and upper lobes bilaterally. There is no pneumothorax. There is no significant pleural effusion.. Impression: Stable position of endotracheal esophagogastric tubes. Worsening of upper lobe opacity suggestive of atelectasis or developing infiltrate. PROCEDURE INTERPRETED AT [facility] DEPARTMENT OF RADIOLOGY Final Report Signed by: Amado Mota
[2017-05-24] MEDS: MINERAL OIL/PETROLATUM OPH OINT 3.5 GM TUBE BOTH EYES SCH ×3 (09:43→21:18)
[2017-05-24] MEDS: CHLORHEXIDINE 0.12% ORAL RINSE 60 ML BOTTLE SWISH/SPIT SCH ×2 (09:43→21:17)
--- NOTE | 2017-05-24 10:24 | Operative Note ---
Date of procedure: 05/24/17 Pre-op diagnosis: Renal failure Post-op diagnosis: same Procedure: Preoperative diagnosis Renal failure with need for hemodialysis access Postoperative diagnosis Same Procedures performed Left common femoral vein hemodialysis catheter placement Findings The left common femoral vein is compressible and it was accessed for hemodialysis access. Patient tolerated procedure well and all 3 ports worked well. Complications none apparent Specimen None Indications Renal failure with need for access for hemodialysis Description of procedure The patient was placed in supine position in his ICU bed and the left groin was prepped. It was draped sterilely and a timeout was performed. The left common femoral artery was palpated and plan stick site was just medial to this. The vein was accessed on first stick and nonpulsatile venous blood was obtained. A wire was placed using Seldinger technique. An incision was made alongside the wire using a long blade scalpel. A 20 cm catheter was placed using Seldinger technique. All 3 port returned blood easily and were flushed with heparin. The catheter was secured in place using 3-0 silk sutures. Sterile dressings were applied. Postoperative plan Begin hemodialysis Surgeon / Physician: Phillip Bui Estimated blood loss: minimal Specimens: none sent Disposition: no change Results - Labs CBC & BMP: 05/24/17 04:07 05/24/17 04:07 Discharge Plan - Discharge Medications No Action HYDROcodone/ACETAMIN 7.5-325 [[place] 7.5-325] 1 tablet PO Q4H PRN #30 tablet PRN Reason: Pain Moderate (4-7) - Follow Up or Referral - Forms/Instructions
--- NOTE | 2017-05-24 10:42 | Hospitalist Progress Note ---
Assessment and Plan (1) Anoxic encephalopathy syndrome Status: Acute Assessment and plan: The patient has elevated cardiac enzymes and liver function testing and creatinine elevation consistent with anoxia. The patient continues on cooling protocol. Antibiotics are as designed by Dr. Sanford. Fracture care per Dr. García. Ventilator management per Dr. Smith. I coordinate care with Dr. Moran and he has arranged dialysis. Current Visit: Yes (2) Acute respiratory failure Status: Acute Current Visit: Yes Qualifiers: Respiratory failure complication: hypoxia and hypercapnia Qualified Code(s) : J96.01 - Acute respiratory failure with hypoxia; J96.02 - Acute respiratory failure with hypercapnia (3) Septic shock Status: Acute Current Visit: Yes Hospitalist: Subjective Interval history: Mr. Lisa remains unresponsive on the ventilator. Rewarming has begun. The patient is receiving hemodialysis at present. I coordinated care with Dr. Rodriguez and with Dr. Moran. Exam - Constitutional Vitals: Period Temp Pulse Resp BP Sys/[place] Pulse Ox Last 24 Hr 90.7 F-99.3 F 87-126 21-25 83-125/38-60 84-99 - Respiratory Respiratory exam: Present: clear to auscultation bilaterally - Cardiovascular Cardiovascular exam: Present: regular rate and rhythm - GI/Abdominal GI/Abdominal exam: Present: hypoactive bowel sounds Results - Labs CBC & BMP: 05/24/17 04:07 05/24/17 04:07 Lab Results: I have reviewed the past 24 hour labs Quality Measures - VTE Contraindication to Pharmacological VTE Prophylaxis: High Risk of Bleeding
[2017-05-24] MEDS ORDERED: HEPARIN 10,000 UNIT/10 ML VIAL IV SCH (11:30)
[2017-05-24] MEDS: ENOXAPARIN 100 MG/ML SYRINGE SUBCUT SCH (12:58)
--- NOTE | 2017-05-24 13:10 | Dialysis Note ---
Dialysis Note - Dialysis Note Mr. Lisa was seen during his hemodialysis. He tolerated his first dialysis fairly well. His blood pressures 120 systolic and almost 2 L of fluid of been removed with dialysis today. Since were able to dialyze him will going to decrease the bicarb infusion in an effort to limit the total amount of fluid that he is receiving. With all of his pressors and sedation he is requiring a good bit of fluid volume and will try to minimize that. Our plan is to hemodialyze again tomorrow and to support with dialysis until a determination of brain viability can be done.
--- NOTE | 2017-05-24 13:20 | Orthopedic Progress Note ---
Orthopedics - Subjective Interval history: Underwent dialysis today not much change. Still critically ill scheduled for trach tomorrow Exam - Constitutional Vitals: Period Temp Pulse Resp BP Sys/[place] Pulse Ox Last 24 Hr 90.7 F-99.3 F 87-126 21-25 83-152/38-70 84-99 Results - Labs CBC & BMP: 05/24/17 04:07 05/24/17 04:07 Quality Measures - VTE Contraindication to Pharmacological VTE Prophylaxis: High Risk of Bleeding
[2017-05-24] MEDS: SODIUM BICARB INJ 150 MEQ in DEXTROSE 5% 850 ML IV SCH (13:35)
[2017-05-24] MEDS ORDERED: SODIUM BICARB INJ 150 MEQ in DEXTROSE 5% 850 ML IV SCH (15:32)
--- NOTE | 2017-05-24 16:40 | Infectious Disease Progress ---
Assessment and Plan (1) Acute kidney failure, unspecified Status: Acute Assessment and plan: Most likely due to profound hypotension, no better today and still oliguric. He started dialysis today. Current Visit: Yes (2) Acute respiratory failure Status: Acute Current Visit: Yes Qualifiers: Respiratory failure complication: hypoxia and hypercapnia Qualified Code(s) : J96.01 - Acute respiratory failure with hypoxia; J96.02 - Acute respiratory failure with hypercapnia (3) Cardiopulmonary arrest Status: Acute Current Visit: Yes (4) Leukocytosis Status: Acute Assessment and plan: Leukocytosis stable since yesterday. No positive blood cultures yet. Current Visit: Yes (5) Metabolic acidosis Status: Acute Current Visit: Yes (6) Septic shock Status: Acute Assessment and plan: Source not clear at this time. Only positive cultures of wound but this should not cause the profound shock that he is in. Recommendations: 1. Continue meropenem 2. Since blood cultures are negative I will discontinue daptomycin given profound increase in CPK level 3. Start linezolid 600 mg every 12 hours 4. Follow-up finalized culture results Prognosis appears grim Current Visit: Yes (7) Laceration of left ankle Status: Acute Current Visit: No (8) Open fracture of medial malleolus of right ankle Status: Acute Assessment and plan: The surgical wound from this repair does not appear to be infected. Current Visit: No (9) Morbid obesity Status: Chronic Current Visit: No Infectious Disease - PN: Subj Interval history: Patient rewarmed today. Sedation and paralytics were stopped earlier and he started coughing uncontrollably and some agonal respirations were also witnessed. He did not actually wake up however. He has been re-sedated. He had a left groin dialysis catheter placed today and he underwent dialysis with 2 L of fluid removed. He still oliguric. Infectious Disease Exam (PN) - Constitutional Vitals: Temp Pulse Resp BP Pulse Ox 98.5 F 116 H 25 H 93/44 99 05/24/17 15:00 05/24/17 15:00 05/24/17 16:34 05/24/17 15:45 05/24/17 15:00 General appearance: no acute distress Exam: General appearance: Unresponsive on vent. - Eye Eye exam: Present: EOMI. no icterus, scleral edema - Neck Neck exam: Large, tracheostomy present - Respiratory Respiratory exam: vesicular BS, no crepitations or wheezes - Cardiovascular Cardiovascular exam: regular rate and rhythm, no murmurs - GI/Abdominal GI/Abdominal exam: Obese, absent bowel sounds - Extremities Exam Extremities exam: Splint to right leg - Skin Skin exam: no rash Results - Labs CBC & BMP: 05/24/17 04:07 05/24/17 04:07 Lab Results: I have reviewed the past 24 hour labs (Blood cultures remain negative, sputum cultures negative, wound culture with gram positive cocci and gram-negative rods) Quality Measures - VTE Contraindication to Pharmacological VTE Prophylaxis: High Risk of Bleeding
[2017-05-24] MEDS: MEROPENEM 1,000 MG in SODIUM CHLORIDE 0.9% 100 ML IV SCH (16:46)
[2017-05-24] MEDS: LINEZOLID INJ 600 MG in PREMIX 1 EACH IV SCH (17:20)
[2017-05-25] MEDS: ALBUTEROL/IPRATROPIUM 3 ML NEB RESP TX SCH ×5 (00:19→16:51)
[2017-05-25] MEDS: CISATRACURIUM 200 MG in SODIUM CHLORIDE 0.9% 100 ML IV SCH (01:31)
[2017-05-25] MEDS: PROPOFOL 1,000 MG/100 ML BOTTLE IV SCH (01:31)
[2017-05-25] MEDS: PHENYLEPHRINE INJ 160 MG in SODIUM CHLORIDE 0.9% 234 ML IV SCH ×2 (01:32→13:01)
[2017-05-25] MEDS: DOPamine 800 MG/250 ML PREMIX IV SCH (01:33)
[2017-05-25] MEDS: INSULIN REGULAR 100 UNIT/ML IV SCH ×4 (02:41→16:28)
[2017-05-25] MEDS: fentaNYL INJ 1,250 MCG in SODIUM CHLORIDE 0.9% 225 ML IV SCH ×2 (02:43→07:20)
[2017-05-25 03:33] LABS: ABG Base Excess -3.2 MMOL/L (-2.5-2.5); ABG HCO3 25.7 MMOL/L (20-26); ABG Oxygen Saturation 96.7 % (95-100); ABG PCO2 67.7 MM HG (35-48); ABG PO2 106.4 MM HG (80-95); ABG TCO2 27.8 MMOL/L (23-27)
[2017-05-25 03:37] LABS: ABG PH 7.197 (7.35-7.45)
[2017-05-25] MEDS: NOREPINEPHRINE 16 MG in SODIUM CHLORIDE 0.9% 234 ML IV SCH ×2 (03:40→11:30)
[2017-05-25 03:49] LABS: Basophils # 0.1 10*3/uL (0.0-0.2); Basophils % 0.3 % (0.0-0.8); Hematocrit 31.1 VOL% (42.0-52.0); Hemoglobin 10.2 GM/DL (14.0-18.0); Immature Granulocytes % 2.5 %; Immature Granulocytes Absolute 0.87 #; Lymphocytes # 1.3 10*3/uL (1.4-4.0); Lymphocytes % 3.8 % (21.2-54.2); Mean Corpuscular HGB Conc 32.8 GM/DL (32-36); Mean Corpuscular Hemoglobin 31 PG (27-34); Mean Corpuscular Volume 95.7 FL (87-102); Mean Platelet Volume 10.9 FL (9.6-12.0); Monocytes # 2.7 10*3/uL (0.11-0.8); Monocytes % 7.8 % (1.7-12.7); NRBC # 0.28 10*3/uL; Neutrophils # 29.5 10*3/uL (1.4-7.4); Neutrophils % 85.6 % (38.7-73.9); Platelet Count 355 T/CUMM (130-400); Red Blood Count 3.25 MC/CUMM (3.8-5.5); Red Cell Distribution Width 14.4 % (9.3-17.3); White Blood Count 34.5 T/CUMM (4-12)
[2017-05-25 04:20] LABS: Albumin 1.8 G/DL (3.4-5.0); Bilirubin,Total 2.1 MG/DL (0.2-1.0); Magnesium 2.4 MG/DL (1.8-2.4); Osmolality,Calculated 296.5 MOS/KG (273-304); Potassium 5.1 MMOL/L (3.5-5.1); Total Protein 5.2 G/DL (6.4-8.3)
[2017-05-25 04:43] LABS: Calcium 5.4 MG/DL (8.5-10.1)
[2017-05-25] MEDS ORDERED: CALCIUM GLUCONATE 2,000 MG in SODIUM CHLORIDE 0.9% 100 ML IV ONE (05:05)
[2017-05-25 05:18] LABS: Band Neutrophils 3 % (0-10); Lymphocytes 4 % (20-55); Platelet Estimate Normal; Segmented Neutrophils 86 % (50-85); Total Cells Counted 100
[2017-05-25] MEDS: FAMOTIDINE 20 MG/2 ML VIAL IV SCH (05:42)
[2017-05-25] MEDS: LINEZOLID INJ 600 MG in PREMIX 1 EACH IV SCH (06:19)
--- NOTE | 2017-05-25 06:41 | Pulmonology Progress Note ---
Pulmonary - PN: Subj Interval history: 51-year-old man that had a cardiac arrest. Came in with sepsis had a difficult intubation. Now has ET tube via cricothyroidotomy. ABGs are a little better but still PO2 is only 76 on 100% oxygen pH of 7.13. He is on a bicarb infusion. Presently on Arctic sun and hypothermic. Urine output has dropped off to almost nothing. CK-MB markedly elevated. I think it would be worthwhile to have nephrology and cardiology to see him as well. He is on broad -spectrum antibiotics for sepsis. 05/24/2017 patient is not responsive. Remains hypotensive requiring pressors. Oxygen saturation has dropped and patient is now on 100% oxygen with 10 of PEEP. Will cut up to 12 of PEEP and cut back to 90% oxygen. Still has elevated PCO2 and combined metabolic respiratory acidosis. Chest x-ray is showing infiltrates now more on the right than the left. Likely ARDS. He has been rewarmed almost up to normal temperature. Await word from neurology as far as brain function. Prognosis is poor. Continuing broad-spectrum antibiotics for sepsis. Apparent hypoxic brain injury. 05/25/2017 patient off Arctic sun apparatus now. Sedation was held yesterday but apparently was coughing so much that his airway pressures were dangerously high and sedation had to be resumed. PO2 is 106 on 90% oxygen and 12 of PEEP. Will try to reduce his FiO2 a bit. We need neurologic evaluation with sedation off to see what is neurologic prognosis is going to be. He has 2 positive cultures from his leg but the final identification and sensitivity is not back from as yet. Continuing broad-spectrum antibiotics. Exam (Progress Note) - Constitutional Vitals: Period Temp Pulse Resp BP Sys/[place] Pulse Ox Last 24 Hr 97.8 F-99.3 F 98-126 20-25 83-157/34-96 87-100 Exam: Systolic blood pressure is 105. He is on Mich-Synephrine and Levophed pressors. His pupils are small and sluggishly reactive. Cricothyroidotomy tube in place. Patient is not moving. Sedatives are being withdrawn. Neck is supple. Chest sounds clear. Heart normal rate and rhythm I do not hear murmurs. Abdomen soft. Decreased bowel sounds. Extremities no clubbing cyanosis trace of edema splint on right leg. Results - Labs CBC & BMP: 05/25/17 03:17 05/25/17 03:17 Lab Results: I have reviewed the past 24 hour labs - Diagnostic Findings Procedure: Chest x-ray: image reviewed by me (Interstitial infiltrates in both mid upper lungs. Slightly better than yesterday.) Assessment and Plan (1) Sepsis Status: Acute Assessment and plan: Patient had fever marked elevated white count tachycardia. Presently on vancomycin and Zosyn. Infectious disease to see. Apparently he has had purulent drainage from his right leg. 05/23/2017 continuing broad-spectrum antibiotics. Continuing pressors. Continuing fluid resuscitation including bicarb. Cultures are negative thus far. Patient on daptomycin and Merrem. Will add Solu-Cortef 05/24/2017 continuing broad-spectrum antibiotics. Culture from leg not quite out yet. Growing gram-positive cocci and gram-negative rods. He is on daptomycin and Merrem. 05/25/2017 continuing broad-spectrum antibiotics with cultures pending. Daptomycin has been discontinued per infectious disease, now getting Zyvox for Current Visit: Yes (2) Acute respiratory failure Status: Acute Assessment and plan: His chest x-ray looks pretty good. Remains hypoxemic despite FiO2 of 100%. Marked metabolic acidosis. Presently has orotracheal tube via his cricoid. Will get ENT to see if we can get a more permanent airway. 05/23/2017 severe combined metabolic and respiratory acidosis. PO2 only 76 on 100% oxygen. Really cannot wean at this point. 05/24/2017 ARDS, metabolic and respiratory acidosis. On large minute ventilation high PEEP and high oxygen. 05/25/2017 high PCO2 despite very large minute ventilation. Airway pressures keep her from going any higher with that. Trying to correct acidosis with bicarb. Also getting dialysis yesterday and hopefully further today. Current Visit: Yes Qualifiers: Respiratory failure complication: hypoxia and hypercapnia Qualified Code(s) : J96.01 - Acute respiratory failure with hypoxia; J96.02 - Acute respiratory failure with hypercapnia (3) Septic shock Status: Acute Assessment and plan: Continuing broad-spectrum antibiotics, pressors, bicarb. He is getting a good bit of IV fluid. Renal function had worsened. 05/23/2017 continuing to require pressors and fluid resuscitation. 05/24/2017 continuing antibiotics and fluid resuscitation. 05/25/2017 continuing full treatment. Current Visit: Yes (4) Morbid obesity Status: Chronic Assessment and plan: This may complicate things with weaning. Current Visit: No (5) Open fracture of medial malleolus of right ankle Status: Acute Assessment and plan: Orthopedics to follow. 05/23/2017 apparently septic from infection at this area. 05/24/2017 orthopedics following 05/25/2017 culture from drainage from this area hopefully will be out final today. Current Visit: No
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
--- NOTE | 2017-05-25 07:47 | EKG Report ---
Stationary ECG Study [facility] Test Date: 05/25/2017 7:47:25 AM Pat Name: DONA SAUCEDA Department: Room: 110 Gender: M Crew Lead: : [id number] Requested by: Arnulfo Spears Order Number: [id number] Reading MD: SHIRA ORTIZ Intervals [place] Rate: 106 P: 69 IA: 138 QRS: 74 QRSD: 87 T: 138 QT: 355 QTc: 417 Interpretive Statements SINUS TACHYCARDIA LOW QRS VOLTAGE MINIMAL ST DEPRESSION Electronically Signed On 05-25-17 17:03:16 CDT by SHIRA ORTIZ [email or web address]
--- NOTE | 2017-05-25 08:06 | XRay Report ---
Exam: XR chest 1V portable Date: 05/25/2017 4:00 AM Indication: Follow-up ventilator respiratory failure Comparison: 05/24/2017 Technical: AP portable Findings: Endotracheal tube nasogastric tube in place. External cardiac leads are present. Some interstitial alveolar densities present in the perihilar regions bilaterally. No obvious pneumothorax or effusions present. Impression: 1. Stable position of life-support tubing 2. Persistent mild shunt vascularity interstitial alveolar edema in the perihilar regions on the mid inspiratory exam [place] to previous study PROCEDURE INTERPRETED AT [facility] DEPARTMENT OF RADIOLOGY Final Report Signed by: Dr. Arnulfo Arnold
--- NOTE | 2017-05-25 08:55 | Nephrology Progress Note ---
Nephrology - PN: Subj Interval history: Mr. Lisa is seen in follow-up of his acute renal failure. He underwent hemodialysis yesterday and tolerated fairly well. He remains unresponsive but sedated. Blood pressure is 120s systolic on Levophed and Mich-Synephrine. When sedation was decreased he coughs significantly impairing our ability to ventilate him. Plan today is for placement of a tracheostomy and we will dialyze after that. Plan from there is to dialyze again tomorrow. We will discontinue the bicarbonate infusion. At this point most of his acidosis is respiratory and I think less fluid will be better given his oliguric state. There is a good bit of peripheral edema but minimal pulmonary edema. [place] remains quite guarded dependent on his LANGUAGE INSTRUCTOR status. Plan is to continue dialysis until we can better assess the LANGUAGE INSTRUCTOR injury. Exam (PN)-Nephrology - Vital Signs Vital signs: Period Temp Pulse Resp BP Sys/[place] Pulse Ox Last 24 Hr 97.5 F-99.3 F 98-126 20-25 90-157/34-96 87-100 - Lab 05/25/17 03:17 05/25/17 03:17 Most recent lab results ABG pH 7.197 (7.35-7.45) L* 05/25/17 03:17 ABG pCO2 67.7 MM HG (35-48) H 05/25/17 03:17 ABG pO2 106.4 MM HG (80-95) H 05/25/17 03:17 ABG HCO3 25.7 MMOL/L (20-26) 05/25/17 03:17 ABG O2 Saturation 96.7 % (95-100) 05/25/17 03:17 Calcium 5.4 MG/DL (8.5-10.1) L* 05/25/17 03:17 Phosphorus 8.7 MG/DL (2.5-4.9) H 05/25/17 03:17 Magnesium 2.4 MG/DL (1.8-2.4) 05/25/17 03:17 Assessment and Plan (1) Acute kidney failure, unspecified Status: Acute Assessment and plan: Will likely need dialysis to bridge to recovery of kidney function Current Visit: Yes (2) Cardiopulmonary arrest Status: Acute Current Visit: Yes (3) Hypoxic encephalopathy Status: Acute Current Visit: Yes
[2017-05-25] MEDS: CHLORHEXIDINE 0.12% ORAL RINSE 60 ML BOTTLE SWISH/SPIT SCH (09:00)
[2017-05-25] MEDS: LORazepam INJ 40 MG in DEXTROSE 5% 30 ML IV SCH (10:00)
--- NOTE | 2017-05-25 11:27 | Infectious Disease Progress ---
Assessment and Plan (1) Acute kidney failure, unspecified Status: Acute Assessment and plan: Most likely due to profound hypotension, no better today and still oliguric. He is now on dialysis. Current Visit: Yes (2) Acute respiratory failure Status: Acute Current Visit: Yes Qualifiers: Respiratory failure complication: hypoxia and hypercapnia Qualified Code(s) : J96.01 - Acute respiratory failure with hypoxia; J96.02 - Acute respiratory failure with hypercapnia (3) Cardiopulmonary arrest Status: Acute Current Visit: Yes (4) Leukocytosis Status: Acute Current Visit: Yes (5) Metabolic acidosis Status: Acute Current Visit: Yes (6) Septic shock Status: Acute Assessment and plan: Source not clear at this time. Only positive cultures of wound and I am not sure if this would cause the profound shock that he is in. Recommendations: 1. Continue meropenem and linezolid 2. Follow-up finalized culture results Current Visit: Yes (7) Laceration of left ankle Status: Acute Current Visit: No (8) Open fracture of medial malleolus of right ankle Status: Acute Assessment and plan: The surgical wound from this repair does not appear to be infected. Current Visit: No (9) Morbid obesity Status: Chronic Current Visit: No Infectious Disease - PN: Subj Interval history: Not much change, still requiring some vasopressor support. Remains on sedation because when it is stopped he gets respiratory distress and hypotension. Infectious Disease Exam (PN) - Constitutional Vitals: Temp Pulse Resp BP Pulse Ox 97.7 F 105 H 22 118/56 97 05/25/17 07:00 05/25/17 06:57 05/25/17 06:57 05/25/17 07:30 05/25/17 06:57 General appearance: no acute distress Exam: General appearance: Unresponsive on vent. - Eye Eye exam: Present: scleral edema - Neck Neck exam: Large, tracheostomy present - Respiratory Respiratory exam: vesicular BS, no crepitations or wheezes - Cardiovascular Cardiovascular exam: regular rate and rhythm, no murmurs - GI/Abdominal GI/Abdominal exam: Obese - Extremities Exam Extremities exam: Splint to right leg - Skin Skin exam: no rash Results - Labs CBC & BMP: 05/25/17 03:17 05/25/17 03:17 Lab Results: I have reviewed the past 24 hour labs (Wound culture final results are pending) Quality Measures - VTE Contraindication to Pharmacological VTE Prophylaxis: High Risk of Bleeding
[2017-05-25] MEDS ORDERED: LIDOCAINE 100 MG/5 ML SYRINGE ONE (12:13)
[2017-05-25] MEDS ORDERED: CALCIUM CHLORIDE 1,000 MG/10 ML SYRINGE IV ONE ×2 (12:13→13:51)
[2017-05-25] MEDS ORDERED: SODIUM BICARBONATE 50 MEQ/50 ML SYRINGE IV ONE (12:13)
[2017-05-25] MEDS ORDERED: EPINEPHrine 1 MG/10 ML SYRINGE ONE ×2 (12:13→13:51)
[2017-05-25] MEDS ORDERED: ATROPINE 1 MG/10 ML SYRINGE ONE (12:13)
--- NOTE | 2017-05-25 13:01 | Operative Note ---
Date of procedure: 05/25/17 Pre-op diagnosis: Respiratory failure, ventilator dependent, emergent cricothyroidotomy, Post-op diagnosis: same Procedure: 1. Tracheostomy placement with 22 modifier because of multiple comorbidities, code, 1 hour procedure that is normally 15 minutes After appropriate informed consent was signed and placed on the chart the patient's brother and sister have been spoken with in person and we discussed the need to obtain a more stable airway. The patient was taken to the operative room and because of recent codes that it happen with movement patient was left on the ICU bed. Timeout was performed and patient was sterilely prepped and draped. The patient's cricothyroidotomy was leaking prior to beginning the procedure and 100% O2 was required with manual inflation to maintain a saturation in the high 80s. It was decided to proceed on to obtain a stable airway. Previous sutures from the cricothyroidotomy were cut and dissection was continued down along the trachea. During this time saturations continued to decrease and were now in the high 70s. Because of the direction of the trachea extending posteriorly it was decided to change to a Bivona flexible tracheostomy tube. The trachea was opened the patient was saturating in the low 70s at this point the trach was introduced into the deep posterior running trachea over a guide/bougie. The saturations dropped to the 50s and an airway was established. At this time the arterial line lost blood pressure and there was electrical activity no pulse was able to be felt on the extremities or in the neck at the carotid and CPR was begun. CPR began at 1213 and continued till 1229 when a pulse was found and was officially discontinued at 1233. Please see the CPR record for protocol followed. The patient's family was spoken with during this time they desired continued effort shortly thereafter the patient's spontaneous pulse and circulation reemerged. The previous incision and extension of the incision was reapproximated using deep and subcutaneous simple interrupted buried 3-0 Vicryl sutures. A 3-0 nylon in a running locking fashion was used to reapproximate the incision. The Bivona trach was sutured into place a Mepilex dressing was inserted to overlie the incision. Additionally a trach tie was used to secure the trach. FloSeal was injected into and around the tracheostomy site for continued hemostasis. Patient was then transferred back in a critical condition to the ICU. Anesthesia: other (Please see anesthesia note) Surgeon / Physician: Bautista Mcclure Estimated blood loss: minimal Specimens: none sent Condition: critical Disposition: ICU Results - Labs CBC & BMP: 05/25/17 03:17 05/25/17 03:17 Discharge Plan - Discharge Medications No Action HYDROcodone/ACETAMIN 7.5-325 [[place] 7.5-325] 1 tablet PO Q4H PRN #30 tablet PRN Reason: Pain Moderate (4-7) - Follow Up or Referral - Forms/Instructions
--- NOTE | 2017-05-25 13:50 | Hospitalist Progress Note ---
Assessment and Plan (1) Anoxic encephalopathy syndrome Status: Acute Assessment and plan: The patient has elevated cardiac enzymes and liver function testing and creatinine elevation consistent with anoxia. The patient has been rewarmed. The patient is presently hemodynamically stable on pressor support. Sedatives have been held and the family wishes to see his neurologic status off sedation. The patient's family may wish to have DO NOT RESUSCITATE status later today or tomorrow. I gave them counseling concerning end-of-life issues. Current Visit: Yes (2) Acute respiratory failure Status: Acute Current Visit: Yes Qualifiers: Respiratory failure complication: hypoxia and hypercapnia Qualified Code(s) : J96.01 - Acute respiratory failure with hypoxia; J96.02 - Acute respiratory failure with hypercapnia (3) Septic shock Status: Acute Current Visit: Yes Hospitalist: Subjective Interval history: The patient has returned from tracheostomy surgery. He had 20 minutes resuscitation in the postoperative interval. The patient is returned to intensive care unit now and remains on Mich-Synephrine and Levophed. I had 25 minutes discussion with his brother and sister concerning prognosis. I informed them that I did not expect return of meaningful brain function and that it was possible that the patient would enter an interval with increasing frequency of resuscitations leading to futile care. The patient's family is considering DO NOT RESUSCITATE status but wishes to continue full CODE STATUS presently. Exam - Constitutional Vitals: Period Temp Pulse Resp BP Sys/[place] Pulse Ox Last 24 Hr 97.5 F-99.1 F 98-117 20-25 90-157/43-96 94-100 Exam: Constitutional System: No distress. No tremulousness. The patient is unresponsive on the ventilator. He is able to trigger the ventilator Head: Normocephalic, atraumatic. Ears, Nose and Throat System: No evidence of Otitis or Mastoiditis. No epistaxis or discharge Eyes System: Pupils equal, round, and reactive. Extraocular muscles intact. Neck: Supple, without adenopathy, No jugular venous distention. No thyromegaly , neck mass, or prior surgery apparent. Respiratory System: Chest clear to auscultation. Patient now has tracheostomy Cardiovascular System: Heart with regular rate and rhythm. No murmur. GI System: Abdomen soft, nontender. Normo active bowel sounds present. Musculoskeletal System: limbs with no pedal edema. Full distal pulses. Results - Labs CBC & BMP: 05/25/17 03:17 05/25/17 03:17 Lab Results: I have reviewed the past 24 hour labs Quality Measures - VTE Contraindication to Pharmacological VTE Prophylaxis: High Risk of Bleeding
[2017-05-25] MEDS ORDERED: SEVOFLURANE 1 UNIT/15 MINUTE INH ONE (13:51)
[2017-05-25] MEDS ORDERED: SODIUM CHLORIDE 0.9% 100 ML IV ONE (13:52)
[2017-05-25] MEDS ORDERED: VECURONIUM 10 MG VIAL IV ONE (13:52)
--- NOTE | 2017-05-25 14:05 | Orthopedic Progress Note ---
Orthopedics - Subjective Interval history: Had trach today and and another arrest. Critically ill. Splint dressings all dry and clean. continue supportive care Exam - Constitutional Vitals: Period Temp Pulse Resp BP Sys/[place] Pulse Ox Last 24 Hr 97.5 F-99.1 F 98-117 20-25 90-157/43-96 94-100 Results - Labs CBC & BMP: 05/25/17 03:17 05/25/17 03:17 Quality Measures - VTE Contraindication to Pharmacological VTE Prophylaxis: High Risk of Bleeding
--- NOTE | 2017-05-25 14:53 | ECHO Report ---
Edwin Lisa 05/25/2017 Exam Date: 10:54 Referring Physician: Abby Hernandez Technologist: ABIGAIL Age: 51 Ht (in): 72 Wt (lb): 384 MExam Location: [facility] Gender: Echo [id number]: s/p Open right ankle fracture, MorbIndications:id (severe) obesity due to excess calories, Acute kidney failure, unspecified, Sepsis, Acute respiratory failure, unspecified whether with hypoxia or hypercapnia, Ventilator dependent, Metabolic acidosis, Septic shock, UTI, Tachycardia, unspecified, Anoxic encephalopathy syndrome, Cardiac arrest, cause unspecified BP: 118 / 56 HR: 109 SinusRhythm: Technically difficult studyTechnical Quality: IMPRESSIONS Normal left ventricular cavity size. Normal left ventricular wall thickness. Left ventricular ejection fraction is estimated at 60 %. The right ventricle is normal in size and function. The right atrium is normal in size. The left atrium is normal in size. Morphologically normal mitral valve. Trace mitral valve regurgitation. Morphologically normal aortic valve without significant sclerosis or stenosis. There is no aortic regurgitation. Morphologically normal tricuspid valve. Tricuspid regurgitation velocities suggest a PAP of 48 mmHg. Mild tricuspid valve regurgitation. Morphologically normal pulmonic valve without significant stenosis. There is no pulmonic regurgitation. Normal pericardium without effusion. Normal ascending aorta dimension. MEASUREMENTS (Male / Female) Normal Values 2D ECHO LV Diastolic Diameter PLAX 5.1 cm 4.2 - 5.9 / 3.9 - 5.3 cm LV Systolic Diameter PLAX 2.9 cm LV Fractional Shortening PLAX 43.4 % IVS Diastolic Thickness 0.9 cm 0.6 - 1.0 / 0.6 - 0.9 cm LVPW Diastolic Thickness 1.0 cm 0.6 - 1.0 / 0.6 - 0.9 cm RV Internal Dim ED PLAX 3.5 cm Aortic Root Diameter 3.5 cm LA Systolic Diameter LX 3.6 cm 3.0 - 4.0 / 2.7 - 3.8 cm DOPPLER TR Peak Velocity 309.0 cm/s TR Peak Gradient 38.2 mmHg FINDINGS Left Ventricle Normal left ventricular cavity size. Normal left ventricular wall thickness. Left ventricular ejection fraction is estimated at 60 %. Right Ventricle The right ventricle is normal in size and function. Right Atrium The right atrium is normal in size. Left Atrium The left atrium is normal in size. Mitral Valve Morphologically normal mitral valve. Trace mitral valve regurgitation. Aortic Valve Morphologically normal aortic valve without significant sclerosis or stenosis. There is no aortic regurgitation. Tricuspid Valve Morphologically normal tricuspid valve. Mild tricuspid valve regurgitation. Tricuspid regurgitation velocities suggest a PAP of 48 mmHg. Pulmonic Valve Morphologically normal pulmonic valve without significant stenosis. There is no pulmonic regurgitation. Pericardium Normal pericardium without effusion. Aorta Normal ascending aorta dimension. Vito Rodriguez MD (Electronically Signed) 25 May 2017 Final Date: 14:51
[2017-05-25] MEDS: HYDROCORTISONE 100 MG VIAL IV SCH (16:26)
[2017-05-25] MEDS: MINERAL OIL/PETROLATUM OPH OINT 3.5 GM TUBE BOTH EYES SCH ×2 (16:27)
--- NOTE | 2017-05-25 18:13 | Discharge Summary ---
Hospital Course - Hospital Course Hospital Course: The patient was admitted to the hospital with sepsis syndrome. The patient had respiratory distress and required intubation. This was difficult and required cricothyroidotomy. The patient sustained an anoxic injury due to prolonged ACLS and CPR. The patient underwent cooling with Arctic sun in the intensive care unit. The patient was seen by multiple consultants. The patient's cricothyroidotomy was converted to tracheostomy. The patient had renal failure , myocardial infarction, and no evidence of return of meaningful brain function. The patient succumbed to his illness of anoxic injury on the afternoon of May 25. I counseled the family concerning poor prognosis. They requested no further resuscitation. The patient succumbed to his illness. 46 minutes were required for [id number] care on the date of discharge. - Time spent with patient Time with patient DS: Greater than 30 minutes - Cause of Cause of : Sepsis syndrome Diagnosis - Discharge Diagnosis (1) Anoxic encephalopathy syndrome Status: Acute (2) Acute respiratory failure Status: Acute (3) Septic shock Status: Acute Discharge Plan - Discharge Data Disposition: Condition at Discharge: - Discharge Medications No Action HYDROcodone/ACETAMIN 7.5-325 [[place] 7.5-325] 1 tablet PO Q4H PRN #30 tablet PRN Reason: Pain Moderate (4-7) - Follow Up or Referral - Forms/Instructions Exam - Constitutional Vitals: Period Temp Pulse Resp BP Sys/[place] Pulse Ox Last 24 Hr 97.5 F-99.8 F 98-123 20-99 76-157/39-96 86-100 Discharge Results Procedures and tests throughout hospitalization: Pending Orders 05/21/17 13:40 Blood Culture Stat 05/22/17 05:02 Blood Culture Stat 05/22/17 12:22 Blood Culture Routine 05/26/17 04:00 XR chest 1V portable IN AM Labs on day of discharge: Labs from last 24 hours 05/25/17 05/25/17 05/25/17 15:41 10:37 07:35 WBC RBC Hgb Hct MCV MCH MCHC RDW Plt Count MPV Neut % (Auto) Lymph % (Auto) Branch % (Auto) Eos % (Auto) Baso % (Auto) Neut # (Auto) Lymph # (Auto) Branch # (Auto) Eos # (Auto) Baso # (Auto) Total Counted Immature Gran % Nucleated RBC % Immature Gran # Segmented Neutrophils Band Neutrophils Lymphocytes Monocytes Nucleated RBCs # Platelet Estimate ABG pH ABG pCO2 ABG pO2 ABG HCO3 ABG Total CO2 ABG O2 Saturation ABG Base Excess Sodium Potassium Chloride Carbon Dioxide Anion Gap BUN Creatinine GFR Calculation BUN/Creatinine Ratio Glucose POC Glucose 122 H 198 H 209 H Calculated Osmolality Calcium Phosphorus Magnesium Total Bilirubin AST ALT Alkaline Phosphatase Total Protein Albumin Globulin Albumin/Globulin Ratio 05/25/17 05/25/17 05/25/17 05:35 03:17 03:17 WBC RBC Hgb Hct MCV MCH MCHC RDW Plt Count MPV Neut % (Auto) Lymph % (Auto) Branch % (Auto) Eos % (Auto) Baso % (Auto) Neut # (Auto) Lymph # (Auto) Branch # (Auto) Eos # (Auto) Baso # (Auto) Total Counted Immature Gran % Nucleated RBC % Immature Gran # Segmented Neutrophils Band Neutrophils Lymphocytes Monocytes Nucleated RBCs # Platelet Estimate ABG pH 7.197 L* ABG pCO2 67.7 H ABG pO2 106.4 H ABG HCO3 25.7 ABG Total CO2 27.8 H ABG O2 Saturation 96.7 ABG Base Excess -3.2 L Sodium Potassium Chloride Carbon Dioxide Anion Gap BUN Creatinine GFR Calculation BUN/Creatinine Ratio Glucose POC Glucose 192 H Calculated Osmolality Calcium Phosphorus 8.7 H Magnesium Total Bilirubin AST ALT Alkaline Phosphatase Total Protein Albumin Globulin Albumin/Globulin Ratio 05/25/17 05/25/17 05/25/17 03:17 03:17 02:29 WBC 34.5 H D RBC 3.25 L Hgb 10.2 L Hct 31.1 L MCV 95.7 MCH 31 MCHC 32.8 RDW 14.4 Plt Count 355 MPV 10.9 Neut % (Auto) 85.6 H Lymph % (Auto) 3.8 L Branch % (Auto) 7.8 Eos % (Auto) 0.0 Baso % (Auto) 0.3 Neut # (Auto) 29.5 H Lymph # (Auto) 1.3 L Branch # (Auto) 2.7 H Eos # (Auto) 0.0 Baso # (Auto) 0.1 Total Counted 100 Immature Gran % 2.5 Nucleated RBC % 0.8 Immature Gran # 0.87 Segmented Neutrophils 86 H Band Neutrophils 3 Lymphocytes 4 L Monocytes 7 Nucleated RBCs # 0.28 Platelet Estimate Normal ABG pH ABG pCO2 ABG pO2 ABG HCO3 ABG Total CO2 ABG O2 Saturation ABG Base Excess Sodium 139 Potassium 5.1 Chloride 99 Carbon Dioxide 27 Anion Gap 18.1 H BUN 57 H Creatinine 5.90 H GFR Calculation 17 BUN/Creatinine Ratio 9.00 Glucose 173 H POC Glucose 207 H Calculated Osmolality 296.5 Calcium 5.4 L* Phosphorus Magnesium 2.4 Total Bilirubin 2.10 H AST 1339 H ALT 1341 H Alkaline Phosphatase 184 H Total Protein 5.2 L Albumin 1.8 L Globulin 3.4 Albumin/Globulin Ratio 0.5 L 05/24/17 21:40 WBC RBC Hgb Hct MCV MCH MCHC RDW Plt Count MPV Neut % (Auto) Lymph % (Auto) Branch % (Auto) Eos % (Auto) Baso % (Auto) Neut # (Auto) Lymph # (Auto) Branch # (Auto) Eos # (Auto) Baso # (Auto) Total Counted Immature Gran % Nucleated RBC % Immature Gran # Segmented Neutrophils Band Neutrophils Lymphocytes Monocytes Nucleated RBCs # Platelet Estimate ABG pH ABG pCO2 ABG pO2 ABG HCO3 ABG Total CO2 ABG O2 Saturation ABG Base Excess Sodium Potassium Chloride Carbon Dioxide Anion Gap BUN Creatinine GFR Calculation BUN/Creatinine Ratio Glucose POC Glucose 211 H Calculated Osmolality Calcium Phosphorus Magnesium Total Bilirubin AST ALT Alkaline Phosphatase Total Protein Albumin Globulin Albumin/Globulin Ratio Preliminary micro results at discharge 05/22/17 12:22 Blood Culture - Preliminary Blood No growth at 3 days 05/22/17 12:22 Blood Culture - Preliminary Blood No growth at 3 days 05/22/17 05:02 Blood Culture - Preliminary Blood No growth at 3 days 05/22/17 02:30 Blood Culture - Preliminary Blood No growth at 3 days 05/21/17 13:40 Blood Culture - Preliminary Blood No growth at 3 days 05/21/17 13:30 Blood Culture - Preliminary Blood No growth at 3 days DS: Provider Date of admission: 05/21/17 14:57 Primary care physician: . No PCP Attending physician on admission: Tj Mora Jr., MD Consults: 05/21/17 16:01 Consult to Physician [CONS] Routine Comment: sepsis Consulting Provider: Elayne Burk Consulting Provider Notified: Yes When should Consulting Provider be notified: Now Consult to Specialist Group: Infectious Disease Person Notified: [email or web address] Date Notified: 05/22/17 Time Notified: 08:45 05/21/17 16:55 Consult to Pharmacy [CONS] Routine Reason for Pharmacy Consult: Dose/Manage Antibiotics 05/22/17 01:19 Consult to Physician [CONS] Routine Comment: cardiac arrest with therapeutic hypothermia Consulting Provider: Vito Rodriguez Consulting Provider Notified: Yes Consult to Specialist Group: Cardiology When should Consulting Provider be notified: In am Person Notified: CINDY Date Notified: 05/22/17 Time Notified: 08:45 05/22/17 01:20 Consult to Physician [CONS] Routine Comment: 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 FRITZ SEEN PT THIS AM 05/22/17 01:22 Consult to Physician [CONS] Routine Comment: therapeutic hypothermia/possible anoxic injury Consulting Provider: Jason Bush Consulting Provider Notified: Yes Consult to Specialist Group: Neurology Person Notified: FRIDA Date Notified: 05/22/17 Time Notified: 08:30 05/22/17 07:00 Consult to Physician [CONS] Routine Comment: known to you Right ankle fx Consulting Provider: Aaron García Jr. Consulting Provider Notified: Yes Consult to Specialist Group: Orthopedic Person Notified: Dr. García Date Notified: 05/22/17 Time Notified: 08:00 05/22/17 08:38 Consult to Physician [CONS] Routine Comment: EVALUATION OF EMERGENT cricothyroidotomy Consulting Provider: Bautista Mcclure Consulting Provider Notified: Yes Consult to Specialist Group: ENT Person Notified: RADHA Date Notified: 05/22/17 Time Notified: 08:50 05/23/17 06:45 Consult to Physician [CONS] Routine Comment: Renal failure Consulting Provider: Alfredo Moran Consulting Provider Notified: Yes Consult to Specialist Group: Nephrology When should Consulting Provider be notified: Now Person Notified: MATTHIAS Date Notified: 05/23/17 Time Notified: 08:25 Consult Notification Comment: @ BEDSIDE 05/23/17 15:30 Consult to Physician [CONS] Routine Comment: TEMPORARY DIALYSIS CATH PLACEMENT Consulting Provider: Phillip Oh Consulting Provider Notified: Yes Consult to Specialist Group: Surgery Person Notified: DR OH Date Notified: 05/23/17 Consult Notification Comment: DR MORAN SPOKE WITH DR. OH VIA TELEPHONE Discharging clinician: Yuri Hale MD
[2017-05-25 19:01] VITALS: BP 23/20
[2017-05-25] MEDS: ENOXAPARIN 100 MG/ML SYRINGE SUBCUT SCH (20:05)
--- NOTE | 2017-05-26 11:49 | Anesthesia Post-Op ---
Anesthesia Post OP - Post Ansesthetic Evaluation Patient seen in post op: Yes Resp: other CV: other Mental: other Temp: other [id number]: other Nausea and Vomiting: other Pain: other Other:: Pt 05/25/17 @ 0334
== END 2017-05-25 17:17 | disposition expired | DRG 4 ==
LOC: N.ED 11:39 → SUATTDRO 14:57 → N.EDINP 14:57 → N.2E 16:07 → N.ICU 17:08
PROVIDERS: ADMIT Internal Medicine Nephrology; ATTEND Internal Medicine